=== PATIENT | female | born 1935 | race Caucasian/White ===

== ENCOUNTER 2016-08-27 10:44 | Emergency (ER) | payer OTHER ==
[2016-08-27 11:36] LABS: MANUAL DIFF NEEDED? NO
--- NOTE | 2016-08-27 11:38 | ED EKG INTERP ---
EKG Interpretation - EKG Time of EKG reading by physician:: 10:58 EKG Read and Signed by:: Ke Hudson EKG Interpretation (*Must complete 3 of following elements*): Abnormal Rate: 87 Rhythm: NSR [place]: left QRS: other (low voltage QRS) LA Interval: normal ST Wave: non-specific ST changes
[2016-08-27 11:43] LABS: BASO% 0.2 % (0.0-0.8); EOS# 1.02 X1000 (0.0-0.7); EOS% 12.3 % (0.0-10.0); HEMATOCRIT 38.7 % (37.0-47.0); HEMOGLOBIN 12.6 g/dL (12.0-16.0); LYMPH# 1.89 X1000 (1.2-3.4); LYMPH% 22.8 % (20.5-51.1); MCH 30.8 PG (27-31); MCHC 32.6 g/dL (33-37); MCV 94.6 FL (81-99); MONO% 10.9 % (1.7-9.3); MPV 9.8 FL (7.4-10.4); NEUT% 53.8 % (42.2-75.2); PLT 238 X1000 (130-400); RBC 4.09 XMIL (4.2-5.4)
--- NOTE | 2016-08-27 11:47 | Diag Imaging Result Document ---
PROCEDURE NAME: CHEST-2 VIEWS - 08/27/2016 CHEST X-RAY 2 VIEWS, 08/27/2016: COMPARISON: 07/07/2016. FINDINGS: There is some trace linear atelectasis at the lateral left lung base. Otherwise, no focal infiltrates, pneumothorax, or pleural effusion. Heart size and pulmonary vascularity is normal. IMPRESSION: No acute disease.
[2016-08-27 11:59] LABS: ALBUMIN 4.8 g/dL (3.5-5.0); CALCIUM 10.2 mg/dL (8.8-10.2); MAGNESIUM 1.9 mg/dL (1.5-2.7); POTASSIUM 2.9 mmol/L (3.5-5.1); TOTAL BILIRUBIN 0.87 mg/dL (0.20-1.00)
[2016-08-27 12:11] LABS: INR 1.01; PROTIME 10.7 Seconds (9.2-11.7); PTT 24.2 Seconds (22.0-36.0)
--- NOTE | 2016-08-27 12:35 | EKG Report ---
Test Performed on : 08/27/2016 10:58:19 AM Test Reason : Chest Pain Blood Pressure : / mmHG Vent. Rate : 087 BPM Atrial Rate : 087 BPM P-R Int : 178 ms QRS Dur : 092 ms QT Int : 378 ms P-R-T Axes : 045 -64 089 degrees QTc Int : 454 ms Normal sinus rhythm. with sinus arrhythmia. Left axis deviation Low voltage QRS Inferior infarct , age undetermined Cannot rule out Anterior infarct , age undetermined Abnormal ECG No previous ECGs available Unconfirmed Result
[2016-08-27] MEDS ORDERED: KLOR-CON PO ONE (13:44)
--- NOTE | 2016-08-27 13:46 | PROVIDER DOCUMENTATION ---
HPI-Respiratory General - General Chief Complaint: Shortness of Breath Stated Complaint: SENT BY MD FOR POSS INFECTION Time Seen by Provider: 08/27/16 13:42 Source: patient Allergies/Adverse Reactions: Patient Allergies Allergy/AdvReac Type Severity Reaction Status Date / Time codeine Allergy SWELLING Verified 06/20/16 17:11 meclizine HCl * Allergy RASH Verified 06/20/16 17:11 [From Antivert] morphine Allergy SWELLING Verified 06/20/16 17:11 Penicillins Allergy RASH Verified 06/20/16 17:11 Sulfa (Sulfonamide Allergy SWELLING Verified 06/20/16 17:11 Antibiotics) tetracycline [Tetracycline] Allergy SWELLING Verified 06/20/16 17:11 Home Medications: Budesonide/Formoterol Fumarate [Symbicort 160-4.5 Mcg Inhaler] 2 sprays INH BID 08/26/13 Hydrocodone Bit/Acetaminophen [Hydrocodon-Acetaminoph 7.5-325] 1 each PO TID 12/04 Rosuvastatin Calcium [Crestor] 40 mg PO HS 08/26/13 Venlafaxine HCl [Venlafaxine HCl ER] 150 mg PO DAILY 08/26/13 Docusate Sodium [Colace] 50 mg PO HS 08/24/14 Fluticasone Propionate 2 spray NS DAILY 08/24/14 Levothyroxine [Synthroid] 75 microgm PO DAILY 08/24/14 - History of Present Illness-Resp Nature of Presenting Problem: patient is a 81 y/o f that presents to the Er with shortness of breath and cough (yellow sputum) x 3 days. history of MRSA pneumonia with lengthy admission in May through Jun 2016. patient has restrictive airway dz and esophageal spams. denies fever/chills, sore throat, or chest pain Severity in ED: reports: mild, moderate Onset/Duration: reports: gradual, 3 days ago Timing: reports: still present, constant Context: reports: recent URI Cough Quality/Degree: reports: moderate, productive cough, sputum (yellow) Episode Frequency: occasional episodes Current Respiratory Medication Therapy: Initiated see nurses note Modifying Factors: worse with: coughing Associated Symptoms: reports: cough, shortness of breath, short of breath. denies: flu-like symptoms, hurts to breathe, nasal congestion, nasal drainage Similar Symptoms Previously?: Yes Recently seen or treated by another doctor?: Yes Review of Systems - Adult - REVIEW OF SYSTEMS - ADULT Constitutional: denies: chills, fever Eyes: reports: no symptoms reported Ears, Nose, Mouth & Throat: reports: no symptoms reported Cardiovascular: denies: chest pain, palpitations, syncope Respiratory: reports: cough, excessive sputum production, shortness of breath. denies: hemoptysis, wheezing Gastrointestinal: denies: abdominal pain, diarrhea, nausea, vomiting Genitourinary: reports: no symptoms reported Musculoskeletal: denies: back pain, joint pain, neck pain Integumentary: reports: no symptoms reported Neurological: reports: no symptoms reported Psychiatric: reports: no symptoms reported Endocrine: reports: no symptoms reported Hematologic/Lymphatic: reports: no symptoms reported Allergic/Immunologic: reports: no symptoms reported All Other Systems: Reviewed and Negative Past History - Adult - PAST MEDICAL HISTORY-ADULT Review of Records: reports: Old Records Reviewed, Nursing Assessment Review, Medications Reviewed Cardiovascular: reports: A-Fib, arrhythmia, CHF, HTN, hyperlipidemia Respiratory: reports: other (restrictive airway dz) Genitourinary: reports: kidney disease (CRI) Musculoskeletal: reports: arthritis, intervertebral disc disease Neurological: reports: other (cervical dystonia) Endocrine/Immune: reports: anemia, thyroid disorder - PRIOR SURGERIES/PROCEDURES Surgical/Procedure History: reports: appendectomy, EGD, colonoscopy, cholecystectomy, hernia repair, back/neck, other (rectocele repair) - IMMUNIZATION STATUS Childhood Immunizations: UTD Flu Vaccine: See Nurse Assessment - FAMILY HISTORY Family History: reviewed, not pertinent - SOCIAL HISTORY Living Situation: family Physical Exam-General - PHYSICAL EXAM-ADULT Initial Vital Signs Reviewed: Yes - CONSTITUTIONAL General Appearance: alert, no apparent distress - EYES Eyes: PERRL/EOMI, pink conjunctivae - HEAD, EARS, NOSE, MOUTH & THROAT HENMT: normocephalic/atraumatic, moist mucous membranes, normal ENT inspection - NECK Neck: supple, other (unable to move neck to left lateral due to cervical dystonia). negative: lymphadenopathy - RESPIRATORY Respiratory: lungs clear, normal breath sounds, no respiratory distress, no accessory muscle use - CARDIOVASCULAR Cardiovascular: no gallop, other (irregular regular) - GASTROINTESTINAL (ABDOMEN) Abdominal Exam: normal bowel sounds, non tender, soft, no organomegaly, no pulsatile mass, hernia (reduceable) - MUSCULOSKELETAL Back Exam: normal inspection, no CVA tenderness Extremity: normal range of motion, no pedal edema, no calf tenderness, normal capillary refill, pelvis stable - SKIN Integumentary: normal color, normal turgor, warm/dry - NEUROLOGIC Neurologic: grossly normal, no motor/sensory deficits - PSYCHIATRIC Psych/Mental Status: normal mood/affect, normal thought content, normal thought process, oriented x 3 Progress - PLAN OF CARE/RESULTS Progress/Plan/Lab Results: plan of care-labs, meds, xray, sputum culture Vital Signs Temp Pulse Resp BP Pulse Ox 08/27/16 13:51 63 15 160/79 95 08/27/16 10:51 97.4 F L 85 18 152/86 100 codeine Allergy (Verified 06/20/16 17:11) SWELLING meclizine HCl * [From Antivert] Allergy (Verified 06/20/16 17:11) RASH morphine Allergy (Verified 06/20/16 17:11) SWELLING Penicillins Allergy (Verified 06/20/16 17:11) RASH Sulfa (Sulfonamide Antibiotics) Allergy (Verified 06/20/16 17:11) SWELLING tetracycline [Tetracycline] Allergy (Verified 06/20/16 17:11) SWELLING Budesonide/Formoterol Fumarate [Symbicort 160-4.5 Mcg Inhaler] 2 sprays INH BID 08/26/13 Hydrocodone Bit/Acetaminophen [Hydrocodon-Acetaminoph 7.5-325] 1 each PO TID 12/04 Rosuvastatin Calcium [Crestor] 40 mg PO HS 08/26/13 Venlafaxine HCl [Venlafaxine HCl ER] 150 mg PO DAILY 08/26/13 Albuterol 2.5MG/Ipratrop 0.5MG [Duoneb (A & A)] 3 ml INH RTQ4H PRN #0 neb Aspirin 81 mg PO DAILY #0 chewtab 04/08/14 Clonazepam [Klonopin] 1 mg PO TID #0 tablet 04/08/14 Losartan [Cozaar] 50 mg PO DAILY #0 tablet 04/08/14 Docusate Sodium [Colace] 50 mg PO HS 08/24/14 Fluticasone Propionate 2 spray NS DAILY 08/24/14 Levothyroxine [Synthroid] 75 microgm PO DAILY 08/24/14 Montelukast [Singulair] 10 mg PO DAILY #30 tablet 08/24/14 Hydrocodone/Chlorphen Polis [Tussionex Liquid] 5 ml PO Q12H PRN PRN #90 udc 11/04 Amitriptyline [Elavil] 25 mg PO HS #30 tablet 07/14/16 Diltiazem [Cardizem] 30 mg PO Q6HR #120 tablet 07/14/16 Diphenhyramine/Al&mg Oh/Lido [Mbx Solution] 15 ml MT 4XDAY PRN PRN #1 bottle Furosemide [Lasix] 40 mg PO DAILY PRN #30 tablet 07/14/16 Iron Carbonyl/Ascorbic Acid [Icar-C] 1 each PO BID #60 tablet 07/14/16 Pantoprazole [Protonix] 40 mg PO DAILY@0700 #30 tablet 07/14/16 Sucralfate [Carafate Liquid] 1 gm PO AC + [place] #1 [facility] Laboratory 08/27/16 08/27/16 08/27/16 11:02 11:02 11:02 WBC RBC Hgb Hct MCV MCH MCHC RDW Std Deviation Plt Count MPV Immature Gran % (Auto) Neut % (Auto) Lymph % (Auto) Colbert % (Auto) Eos % (Auto) Baso % (Auto) Immature Gran # (Auto) Neut # (Auto) Lymph # (Auto) Colbert # (Auto) Eos # (Auto) Baso # (Auto) PT 10.7 INR 1.01 PTT (Actin FS) 24.2 Sodium Potassium Chloride Carbon Dioxide Anion Gap BUN Creatinine Estimated GFR/1.73 m2 BUN/Creatinine Ratio Glucose Calculated Osmolality Calcium Magnesium Total Bilirubin AST ALT Alkaline Phosphatase Creatine Kinase Troponin T < 0.010 [id number] Pept 324 Total Protein Albumin Globulin Albumin/Globulin Ratio 08/27/16 08/27/16 11:02 11:02 WBC 8.29 RBC 4.09 L Hgb 12.6 Hct 38.7 MCV 94.6 MCH 30.8 MCHC 32.6 L RDW Std Deviation 14.5 Plt Count 238 MPV 9.8 Immature Gran % (Auto) 0.0 Neut % (Auto) 53.8 Lymph % (Auto) 22.8 Colbert % (Auto) 10.9 H Eos % (Auto) 12.3 H Baso % (Auto) 0.2 Immature Gran # (Auto) 0.00 Neut # (Auto) 4.46 Lymph # (Auto) 1.89 Colbert # (Auto) 0.90 H Eos # (Auto) 1.02 H Baso # (Auto) 0.02 PT INR PTT (Actin FS) Sodium 141 Potassium 2.9 L Chloride 94 L Carbon Dioxide 29 Anion Gap 18 BUN 14 Creatinine 1.7 H Estimated GFR/1.73 m2 29 BUN/Creatinine Ratio 8 Glucose 105 H Calculated Osmolality 282 Calcium 10.2 Magnesium 1.9 Total Bilirubin 0.87 AST 21 ALT 15 Alkaline Phosphatase 69 Creatine Kinase 80 Troponin T [id number] Pept Total Protein 7.0 Albumin 4.8 Globulin 2.2 Albumin/Globulin Ratio 2.2 Orders Category Date Time Status CHEST-2 VIEWS [RAD] Stat Exams 08/27/16 10:56 Draft CBC WITH ELECTRONIC DIFF [HEME] Stat Lab 08/27/16 11:02 Completed CK PROFILE [SP CHEM] Stat Lab 08/27/16 11:02 Completed COMPREHENSIVE METABOLIC PANEL [CHEM] Stat Lab 08/27/16 11:02 Completed MAGNESIUM [CHEM] Stat Lab 08/27/16 11:02 Completed PRO B-NATRIURETIC PEPTIDE Stat Lab 08/27/16 11:02 Completed PROTIME WITH INR [COAG] Stat Lab 08/27/16 11:02 Completed PTT [COAG] Stat Lab 08/27/16 11:02 Completed TROPONIN T Stat Lab 08/27/16 11:02 Completed Potassium Chloride E.r. [Klor-Con] Med 08/27/16 13:44 Discontinued 40 meq PO NOW ONE EKG [EKG] Stat Ther 08/27/16 10:56 Draft pt will be d/c home f/u with pcp, rx given, pt was clinically stable and understood instructions - XRAY 1 XRAY Study: Chest Impression: Abnormal XRAY Interpretation: no acute dz, linear atelectasis Departure - Departure Time of Disposition Order: 14:04 DIAGNOSIS: Shortness of breath, A-fib, Chronic cough, Hypokalemia Disposition: HOME 01 Certified Medical Emergency: Emergent Condition: Stable Additional Instructions: ED Follow Up Instructions: You have been treated by a care provider in the Emergency Department. These instructions are being provided to you so you can have an understanding of how to care for yourself upon discharge. Upon discharge from the Emergency Department, you are responsible for making arrangements for follow-up care by a physician of your choice. Take all prescribed medications as directed. Return to the Emergency Department immediately for any new or worsening symptoms. You may call the Physician Referral phone number at [phone] to obtain a list of Physicians who are taking new patients. Referrals: Emma Trevino MD [Primary Care Provider] - (call today) Instructions: Cough, Adult, [id number], Hypokalemia Attestation - Scribe Verification/Attestation Scribe:: Prashanth Riggs Acting as Scribe for:: Ke Hudson Scribe documention review:: This chart was documented by a scribe and accurately reflects the service the provider performed and the decisions made by the provider. Physician Attestation - Physician Attestation I, the provider, attest to the following statement:: Ke Hudson Physician documentation Attestation:: This documentation recorded by the scribe accurately reflects the service I personally performed and the decisions made by me.
[2016-08-27 14:35] VITALS: BP 152/84
== END 2016-08-27 14:46 | disposition home or self-care (01) ==
LOC: ED 10:44
DX: I48.91 Unspecified atrial fibrillation (principal); E87.6 Hypokalemia; R06.02 Shortness of breath; R05 Cough; I50.9 Heart failure, unspecified; I10 Essential (primary) hypertension; E78.5 Hyperlipidemia, unspecified; Z79.899 Other long term (current) drug therapy; I12.9 Hypertensive chronic kidney disease with stage 1 through stage 4 chronic kidney disease, or unspecified chronic kidney disease; N18.9 Chronic kidney disease, unspecified; R09.3 Abnormal sputum; M19.90 Unspecified osteoarthritis, unspecified site; M48.9 Spondylopathy, unspecified; G24.9 Dystonia, unspecified; D64.9 Anemia, unspecified; E07.9 Disorder of thyroid, unspecified; Z79.51 Long term (current) use of inhaled steroids; Z79.82 Long term (current) use of aspirin; J98.9 Respiratory disorder, unspecified
CPT/HCPCS: 71020; 80053; 82550; 83735; 83880; 84484; 85025; 85610; 85730; 93005; 99282

== ENCOUNTER 2016-12-19 18:27 | Inpatient (IN) ==
[2016-12-19] MEDS ORDERED: ALBUTEROL NEB ONE (18:33)
[2016-12-19] MEDS ORDERED: DUONEB (A & A) INH ONE (18:40)
[2016-12-19] MEDS ORDERED: NITROGLYCERIN SL ONE (18:40)
[2016-12-19] MEDS ORDERED: NITROGLYCERIN TOP ONE (18:40)
[2016-12-19] MEDS ORDERED: ALBUTEROL NEB INH ONE (18:40)
[2016-12-19] MEDS ORDERED: SOLU-MEDROL IV ONE (18:42)
[2016-12-19 18:52] LABS: MANUAL DIFF NEEDED? NO
[2016-12-19 18:56] LABS: ALLEN TEST YES; BE 2.6 mmoll (-3.0-3.0); BLOOD TYPE ARTERIAL; DRAW SITE R RADIAL; METHB 1.3 % (0.0-1.5); O2(CT) 19.3 mL/dL (15.0-23.0); PO2(98.6) 181 mmHg (60-100); SAMPLE BLOOD; SAO2 100.6 % (95.0-100.0); THB 13.9 g/dL (11.5-17.4); pH(98.6) 7.26 (7.35-7.45)
[2016-12-19 18:57] LABS: MODALITY BI PAP; PCO2(98.6) 71 mmHg (35-45)
[2016-12-19 18:59] LABS: BASO% 0.5 % (0.0-0.8); EOS# 1.39 X1000 (0.0-0.7); EOS% 10.8 % (0.0-10.0); HEMATOCRIT 41.8 % (37.0-47.0); HEMOGLOBIN 13.7 g/dL (12.0-16.0); IMM GRAN# 0.05 X1000 (0.0-0.04); IMM GRAN% 0.4 % (0.0-0.5); LYMPH# 4.82 X1000 (1.2-3.4); LYMPH% 37.5 % (20.5-51.1); MCH 31.7 PG (27-31); MCHC 32.8 g/dL (33-37); MCV 96.8 FL (81-99); MONO# 1.11 X1000 (0.11-0.59); MONO% 8.6 % (1.7-9.3); MPV 9.9 FL (7.4-10.4); NEUT% 42.2 % (42.2-75.2); PLT 298 X1000 (130-400); RBC 4.32 XMIL (4.2-5.4)
[2016-12-19 19:08] LABS: INR 1.02; PROTIME 10.7 Seconds (9.2-11.7)
[2016-12-19 19:17] LABS: ALBUMIN 4.1 g/dL (3.5-5.0); CALCIUM 9.3 mg/dL (8.8-10.2); MAGNESIUM 2.7 mg/dL (1.5-2.7); POTASSIUM 3.9 mmol/L (3.5-5.1); TOTAL BILIRUBIN 0.7 mg/dL (0.20-1.00); TOTAL PROTEIN 7.4 g/dL (6.3-8.3)
[2016-12-19 19:35] LABS: CK INDEX 3.1 (0.0-2.5); CK-MB 8.35 ng/mL (0.0-5.0)
[2016-12-19 19:46] LABS: ALLEN TEST YES; BE 5.1 mmoll (-3.0-3.0); BLOOD TYPE ARTERIAL; DRAW SITE R RADIAL; METHB 2.1 % (0.0-1.5); O2(CT) 17.8 mL/dL (15.0-23.0); PCO2(98.6) 50 mmHg (35-45); PO2(98.6) 258 mmHg (60-100); SAMPLE BLOOD; SAO2 99.3 % (95.0-100.0); THB 12.8 g/dL (11.5-17.4)
[2016-12-19 19:48] LABS: MODALITY BI PAP
--- NOTE | 2016-12-19 19:54 | Diag Imaging Result Document ---
PROCEDURE NAME: CHEST-PORTABLE - 12/19/2016 PORTABLE CHEST: COMPARISON: Compared to 12/01/2016. The lungs are well expanded. The heart remains mildly prominent. The vessels are not distended. No consolidation. No pleural effusions identified. IMPRESSION: Stable chest.
--- NOTE | 2016-12-19 20:04 | PROVIDER DOCUMENTATION ---
This chart was entered by Joe Elias Scribe, acting as scribe for Neftali Smith MD. HPI-Respiratory General - General Stated Complaint: fall, left hip pain Time Seen by Provider: 12/19/16 18:27 Source: EMS Allergies/Adverse Reactions: Patient Allergies Allergy/AdvReac Type Severity Reaction Status Date / Time codeine Allergy SWELLING Verified 12/19/16 18:45 meclizine HCl * Allergy RASH Verified 12/19/16 18:45 [From Antivert] morphine Allergy SWELLING Verified 12/19/16 18:45 Penicillins Allergy RASH Verified 12/19/16 18:45 Sulfa (Sulfonamide Allergy SWELLING Verified 12/19/16 18:45 Antibiotics) tetracycline [Tetracycline] Allergy SWELLING Verified 12/19/16 18:45 Home Medications: Home Medication List Medication Instructions Recorded Confirmed Last Taken Type Budesonide/Formoterol Fumarate 2 sprays INH BID 08/26/13 12/19/16 12/01/16 History [Symbicort 160-4.5 Mcg Inhaler] Hydrocodone Bit/Acetaminophen 1 each PO TID 08/26/13 12/19/16 12/01/16 History [Hydrocodon-Acetaminoph 7.5-325] Rosuvastatin Calcium [Crestor] 40 mg PO HS 08/26/13 12/19/16 12/01/16 History Venlafaxine HCl [Venlafaxine HCl 150 mg PO DAILY 08/26/13 12/19/16 12/01/16 History ER] Albuterol 2.5MG/Ipratrop 0.5MG 3 ml INH RTQ4H PRN #0 neb 04/08/14 12/19/1612/01 Rx [Duoneb (A & A)] Aspirin 81 mg PO DAILY #0 chewtab 04/08/14 12/19/16 12/01/16 Rx Clonazepam [Klonopin] 1 mg PO TID #0 tablet 04/08/14 12/19/16 12/01/16 Rx Losartan [Cozaar] 50 mg PO DAILY #0 tablet 04/08/14 12/19/16 12/01/16 Rx Docusate Sodium [Colace] 50 mg PO HS 08/24/14 12/19/16 12/01/16 History Levothyroxine [Synthroid] 75 microgm PO DAILY 08/24/14 12/19/16 12/01/16 History Iron Carbonyl/Ascorbic Acid 1 each PO BID #60 tablet 07/14/16 12/19/16 12/01/16 Rx [Icar-C] Pantoprazole [Protonix] 40 mg PO DAILY@0700 #30 tablet 07/14/16 12/19/16 Rx Sucralfate [Carafate Liquid] 1 gm PO AC + HS #1 udc 07/14/16 12/19/16 12/01/16 Rx Hydrochlorothiazide 12.5 mg PO DIRECTED 12/19/16 12/19/16 Unknown History [Hydrochlorothiazide] Potassium Chloride 10 meq PO TID 12/19/16 12/19/16 Unknown History - History of Present Illness-Resp Nature of Presenting Problem: Pt is a 41 yof who presents to ER via EMS from home with CC of shortness of breath. EMS reports that pt was 97% O2 saturation on non-rebreather (was applied prior to EMS arrival). Severity in ED: reports: severe Onset/Duration: reports: unsure Timing: reports: still present Associated Symptoms: reports: shortness of breath, short of breath, wheezing. denies: chest pain/soreness, cough, dizziness, earache, facial pain, fever/ chills, flu-like symptoms, headache, heart racing, hurts to breathe, hyperventilating, lightheadedness, muscle/bodyaches, nasal congestion, nasal drainage, sinus pain, sore throat, sweaty Review of Systems - Adult - REVIEW OF SYSTEMS - ADULT ROS:: limited per condition Constitutional: denies: chills, fever, fatique, night sweats, weight gain, weight loss Eyes: reports: no symptoms reported Ears, Nose, Mouth & Throat: reports: no symptoms reported Cardiovascular: reports: no symptoms reported Respiratory: reports: shortness of breath, wheezing. denies: chronic cough, cough, dyspnea on exertion, excessive sputum production, hemoptysis, pleurisy Gastrointestinal: reports: no symptoms reported Genitourinary: reports: no symptoms reported Musculoskeletal: reports: no symptoms reported Integumentary: reports: no symptoms reported Neurological: reports: no symptoms reported Psychiatric: reports: no symptoms reported Endocrine: reports: no symptoms reported Hematologic/Lymphatic: reports: no symptoms reported Allergic/Immunologic: reports: no symptoms reported All Other Systems: Reviewed and Negative Past History - Adult - PAST MEDICAL HISTORY-ADULT Review of Records: reports: Nursing Assessment Review, Medications Reviewed Cardiovascular: reports: A-Fib, arrhythmia, CHF, HTN, hyperlipidemia Respiratory: reports: other (restrictive airway dz) Genitourinary: reports: kidney disease (CRI) Musculoskeletal: reports: arthritis, intervertebral disc disease Neurological: reports: other (cervical dystonia) Endocrine/Immune: reports: anemia, thyroid disorder - PRIOR SURGERIES/PROCEDURES Surgical/Procedure History: reports: appendectomy, EGD, colonoscopy, cholecystectomy, hernia repair, back/neck, other (rectocele repair) - IMMUNIZATION STATUS Childhood Immunizations: UTD, See Nurse Assessment Flu Vaccine: See Nurse Assessment - FAMILY HISTORY Family History: reviewed, not pertinent Physical Exam-General - PHYSICAL EXAM-ADULT Initial Vital Signs Reviewed: Yes - CONSTITUTIONAL General Appearance: alert, severe distress. negative: appears well - EYES Eyes: PERRL/EOMI, pink conjunctivae, fundi clear, no AV nicking - HEAD, EARS, NOSE, MOUTH & THROAT HENMT: normocephalic/atraumatic, moist mucous membranes, normal ENT inspection, TMs normal, pharynx normal. negative: pharyngeal erythema, tonsillar exudate, TM abnormal - NECK Neck: non-tender, full range of motion, supple, normal inspection. negative: C- spine tenderness, limited range of motion, lymphadenopathy - RESPIRATORY Respiratory: chest non-tender, no pleuratic chest pain, respiratory distress, wheezing (non-wet wheezing). negative: lungs clear, normal breath sounds, no respiratory distress - CARDIOVASCULAR Cardiovascular: normal peripheral pulses, tachycardia. negative: regular rate, rhythm, bradycardia, irregularly irregular - MUSCULOSKELETAL Back Exam: normal inspection, no CVA tenderness, no vertebral tenderness. negative: CVA tenderness, decreased range of motion, ecchymosis, muscle spasm, swelling, vertebral tenderness Extremity: normal range of motion, non-tender, normal gait, normal inspection, no pedal edema, no calf tenderness, normal capillary refill. negative: swelling , tenderness - PSYCHIATRIC Psych/Mental Status: normal thought content, normal thought process, oriented x 3, anxious, disheveled. negative: normal mood/affect Progress - PLAN OF CARE/RESULTS Progress/Plan/Lab Results: Vital Signs - 8 hr 12/19/16 18:27 12/19/16 18:48 Pulse Rate 109 H 122 H Respiratory Rate 29 H 32 H Blood Pressure 169/141 O2 Sat by Pulse Oximetry 98 99 Laboratory Results - last 24 hr 12/19/16 12/19/16 12/19/16 18:33 18:33 18:33 WBC 12.85 H RBC 4.32 Hgb 13.7 Hct 41.8 MCV 96.8 MCH 31.7 H MCHC 32.8 L RDW Std Deviation 14.9 H Plt Count 298 MPV 9.9 Immature Gran % (Auto) 0.4 Neut % (Auto) 42.2 Lymph % (Auto) 37.5 [place] % (Auto) 8.6 Eos % (Auto) 10.8 H Baso % (Auto) 0.5 Immature Gran # (Auto) 0.05 H Neut # (Auto) 5.42 Lymph # (Auto) 4.82 H [place] # (Auto) 1.11 H Eos # (Auto) 1.39 H Baso # (Auto) 0.06 PT INR PTT (Actin FS) D-Dimer 0.67 H Specimen Type Sample Site pH pCO2 pO2 HCO3 Base Excess Oxyhemoglobin ABG O2 Sat (Calculated) ABG O2 Saturation ABG Carboxyhemoglobin ABG Methemoglobin Oidn Test A-a O2 Difference Total Hemoglobin Lactate Blood Gas Modality Vent Mode FiO2 % Inspiratory BiPAP Expiratory BiPAP Sodium 144 Potassium 3.9 Chloride 99 Carbon Dioxide 27 Anion Gap 18 BUN 16 Creatinine 1.7 H Estimated GFR/1.73 m2 29 BUN/Creatinine Ratio 9 Glucose 217 H Calculated Osmolality 295 Calcium 9.3 Magnesium 2.7 Total Bilirubin 0.70 AST 32 H ALT 16 Alkaline Phosphatase 73 Creatine Kinase 267 H Creatine Kinase Index 3.1 H CK-MB (CK-2) 8.35 H Troponin T [id number]-Y-Avsncwasylu Pept Total Protein 7.4 Albumin 4.1 Globulin 3.3 Albumin/Globulin Ratio 1.2 12/19/16 12/19/16 12/19/16 18:33 18:33 18:33 WBC RBC Hgb Hct MCV MCH MCHC RDW Std Deviation Plt Count MPV Immature Gran % (Auto) Neut % (Auto) Lymph % (Auto) [place] % (Auto) Eos % (Auto) Baso % (Auto) Immature Gran # (Auto) Neut # (Auto) Lymph # (Auto) [place] # (Auto) Eos # (Auto) Baso # (Auto) PT 10.7 INR 1.02 PTT (Actin FS) 24.0 D-Dimer Specimen Type Sample Site pH pCO2 pO2 HCO3 Base Excess Oxyhemoglobin ABG O2 Sat (Calculated) ABG O2 Saturation ABG Carboxyhemoglobin ABG Methemoglobin Odin Test A-a O2 Difference Total Hemoglobin Lactate Blood Gas Modality Vent Mode FiO2 % Inspiratory BiPAP Expiratory BiPAP Sodium Potassium Chloride Carbon Dioxide Anion Gap BUN Creatinine Estimated GFR/1.73 m2 BUN/Creatinine Ratio Glucose Calculated Osmolality Calcium Magnesium Total Bilirubin AST ALT Alkaline Phosphatase Creatine Kinase Creatine Kinase Index CK-MB (CK-2) Troponin T 0.012 [id number]-Tpfxwditnhq Pept 1558 H Total Protein Albumin Globulin Albumin/Globulin Ratio 12/19/16 12/19/16 18:47 19:40 WBC RBC Hgb Hct MCV MCH MCHC RDW Std Deviation Plt Count MPV Immature Gran % (Auto) Neut % (Auto) Lymph % (Auto) [place] % (Auto) Eos % (Auto) Baso % (Auto) Immature Gran # (Auto) Neut # (Auto) Lymph # (Auto) [place] # (Auto) Eos # (Auto) Baso # (Auto) PT INR PTT (Actin FS) D-Dimer Specimen Type ARTERIAL ARTERIAL Sample Site R RADIAL R RADIAL pH 7.26 L 7.40 pCO2 71 H* 50 H pO2 181 H 258 H HCO3 26.9 H 28.9 H Base Excess 2.6 5.1 H Oxyhemoglobin 97.0 95.7 ABG O2 Sat (Calculated) 19.3 17.8 ABG O2 Saturation 100.6 H 99.3 ABG Carboxyhemoglobin 2.20 1.50 ABG Methemoglobin 1.3 2.1 H Odin Test YES YES A-a O2 Difference 229.0 179.0 Total Hemoglobin 13.9 12.8 Lactate 2.80 H 1.60 Blood Gas Modality BI PAP BI PAP Vent Mode BIPAP FiO2 % 70.0 70.0 Inspiratory BiPAP 20.0 20.0 Expiratory BiPAP 5.0 5.0 Sodium Potassium Chloride Carbon Dioxide Anion Gap BUN Creatinine Estimated GFR/1.73 m2 BUN/Creatinine Ratio Glucose Calculated Osmolality Calcium Magnesium Total Bilirubin AST ALT Alkaline Phosphatase Creatine Kinase Creatine Kinase Index CK-MB (CK-2) Troponin T Jiw-X-Oqatogxqyus Pept Total Protein Albumin Globulin Albumin/Globulin Ratio Orders Category Date Time Status Cardiac Monitoring DIRECTED Care 12/19/16 18:39 Active Oxygen Therapy- ED Nursing DIRECTED Care 12/19/16 18:39 Active Saline Loc NOW Care 12/19/16 18:39 Active cxr [CHEST-PORTABLE] [RAD] Stat Exams 12/19/16 18:31 Draft ABG [RESP] Routine Lab 12/19/16 18:47 Completed ABG [RESP] Routine Lab 12/19/16 18:52 Ordered ABG [RESP] Routine Lab 12/19/16 19:40 Completed BLOOD CULTURE [BLDCUL] Stat Lab 12/19/16 19:51 Received CBC WITH ELECTRONIC DIFF [HEME] Stat Lab 12/19/16 18:33 Completed CK PROFILE [SP CHEM] Stat Lab 12/19/16 18:33 Completed COMPREHENSIVE METABOLIC PANEL [CHEM] Stat Lab 12/19/16 18:33 Completed D-DIMER [CHEM] Stat Lab 12/19/16 18:33 Completed LACTATE, PLASMA [CHEM] Stat Lab 12/19/16 18:43 Uncollected MAGNESIUM [CHEM] Stat Lab 12/19/16 18:33 Completed PRO B-NATRIURETIC PEPTIDE Stat Lab 12/19/16 18:33 Completed PROTIME WITH INR [COAG] Stat Lab 12/19/16 18:33 Completed PTT [COAG] Stat Lab 12/19/16 18:33 Completed TROPONIN T Stat Lab 12/19/16 18:33 Completed Albuterol 2.5MG/Ipratrop 0.5MG [Duoneb (A & A)] Med 12/19/16 18:40 Discontinued 3 ml INH NOW ONE Albuterol [Albuterol Neb] Med 12/19/16 18:40 Discontinued 5 mg INH NOW ONE Methylprednisolone Sod Succ [Solu-Medrol] Med 12/19/16 18:42 Discontinued 125 mg IV NOW ONE Nitroglycerin Med 12/19/16 18:40 Discontinued 1 inch TOP NOW ONE Nitroglycerin Sl [Nitroglycerin] Med 12/19/16 18:40 Discontinued 0.4 mg SL NOW ONE Aerosol Treatments Routine Oth 12/19/16 18:40 Completed Aerosol Treatments Stat Oth 12/19/16 18:40 Completed EKG [EKG] Stat Ther 12/19/16 18:39 Ordered Result Diagrams: 12/19/16 18:33 12/19/16 18:33 - REASSESSMENT Reassessment #1 Time Reassessed: 18:50 Status: other (Son at bedside report that pt has had a chronic cough that has become worse in the past week and has had to use her boyfriend's O2 at home.) Reassessment #2 Time Reassessed: 20:03 (pt breathing much easier) Status: improving - EKG 1 Time of EKG reading by physician:: 18:35 EKG Read and Signed by:: Neftali Smith EKG Interpretation (*Must complete 3 of following elements*): Abnormal (L axis deviation) Rate: 88 Rhythm: Bygeminy - XRAY 1 XRAY: Bilateral XRAY Study: Chest Impression: See EMR Report XRAY Interpretation: No obvious pulmonary edema Departure - Departure Time of Disposition Decision: 20:04 DIAGNOSIS: COPD exacerbation Disposition: ADMITTED INPATIENT 09 Certified Medical Emergency: Emergent Condition: Fair - Critical Care Note This patient required my direct personal management.: Yes Total Time (mins): 60 Critical Care Statement: This patient required my direct personal management to treat or rule out processes, the absence of which, could potentiallly result in sudden, clinically significant life or limb threatening deterioration. This chart was documented by the indicated scribe, (Joe Elias, Casandra) and accurately reflects the services I performed and decisions made by me, Neftali Gómez MD, as attested by the provider's signature.
--- NOTE | 2016-12-19 21:33 | HISTORY AND PHYSICAL ---
CHIEF COMPLAINT: Cough and shortness of breath. PRIMARY CARE PHYSICIAN: Dr. Emma Trevino. HISTORY OF PRESENTING ILLNESS: This 81-year-old female with a history of COPD, CHF, hypertension and hypothyroidism had presented to the emergency department with several weeks history of having progressive worsening shortness of breath. The patient states that she was having difficulty breathing. She was also having coughing spells which would not stop and it seemed to be worsening over the past several days. She states that symptoms worsened such that she could not tolerate and subsequently she had come to the emergency department. In ER she was evaluated. She was found to be in respiratory distress. She was put on BiPAP and she had some improvement. Due to her presenting symptoms, patient will need hospitalization for further management. At the time of my examination she had denied any fever, chills, chest pain, hemoptysis, or any weight changes but complained of having a headache and shortness of breath. PAST MEDICAL HISTORY: Includes COPD, hypertension, CHF, hyperlipidemia, esophageal spasm/stricture, cervical dystonia, chronic kidney disease, anemia, hypothyroidism. PAST SURGICAL HISTORY: Back surgery, neck surgery, hernia repair, hysterectomy. ALLERGIES: To codeine, morphine, penicillin, sulfa, tetracycline. CURRENT MEDICATIONS: As listed in the MAR. SOCIAL HISTORY: She denies any history of smoking, alcohol or illicit drug use. FAMILY HISTORY: No history of coronary disease. REVIEW OF SYSTEMS: Twelve-point review of systems is as in HPI. Other systems negative. PHYSICAL EXAMINATION: GENERAL: The patient is in mild to moderate respiratory distress and is on BiPAP. VITAL SIGNS: Pulse 109, respiration 29, blood pressure 169/141. HEENT: Atraumatic, normocephalic. Extraocular movements intact. PERRLA. NECK: No masses. CHEST: Rhonchi. CARDIOVASCULAR: Tachycardic. ABDOMEN: Soft. Positive bowel sounds. EXTREMITIES: Trace edema. NEURO: She is awake, alert, oriented x2. : No bladder distention. SKIN: Warm and good turgor. LABORATORIES AND STUDIES: WBC 12.85, hemoglobin 13.7, hematocrit 41.8, platelets 298,000. ABGs were pH 7.26, pCO2 is 71. Sodium 144, potassium 3.9, chloride 99, CO2 is 27, BUN is 16, creatinine 1.7, glucose 217. ProBNP is 1558. ASSESSMENT: 81-year-old elderly female with a history of chronic obstructive pulmonary disease, hypertension, congestive heart failure and hyperlipidemia had presented to emergency department with several weeks history of worsening shortness of breath for the past several days. It worsened such that she could not tolerate. She was evaluated in the ER and put on BiPAP and she will need hospitalization further management. The patient and family had discussed that she did not want any long-term ventilator support but is agreeable to cardiopulmonary resuscitation. 1. Acute respiratory failure. 2. Chronic obstructive pulmonary disease exacerbation. 3. Congestive heart failure unspecified. 4. Hypertension. 5. Hyperlipidemia. PLAN: 1. Will admit patient to ICU. 2. Will continue with BiPAP. 3. Will start patient on Solu-Medrol and Levaquin. 4. Will consult Pulmonary. 5. Will continue gentle diuresis as needed. 6. We will monitor blood pressure. Resume antihypertensive agents. 7. We will restart her home medications. 8. Put patient on DVT prophylaxis with SCDs. 9. The patient is DNR level 2. 10. Will continue to follow and reassess. cc: Filiberto Overton MD
[2016-12-19] MEDS ORDERED: HYDROCHLOROTHIAZIDE PO SCH (21:39)
[2016-12-19] MEDS ORDERED: TYLENOL PO PRN (21:39)
[2016-12-19] MEDS: CARAFATE LIQUID PO SCH (22:10)
[2016-12-19] MEDS: COLACE PO SCH (22:11)
[2016-12-19] MEDS: CRESTOR PO SCH (22:12)
[2016-12-19] MEDS: ICAR-C PO SCH (22:13)
[2016-12-19] MEDS: LEVAQUIN 500 MG/D5W 500 MG/100 ML IVPB IV SCH (22:14)
[2016-12-19] MEDS ORDERED: KLONOPIN PO ONE ×2 (22:22→22:30)
[2016-12-19] MEDS: DUONEB (A & A) INH SCH (23:30)
[2016-12-20] MEDS ORDERED: SOLU-MEDROL IV SCH (02:00)
[2016-12-20] MEDS ORDERED: NS 1,000 ML IV SCH (03:20)
[2016-12-20] MEDS: DUONEB (A & A) INH SCH ×6 (03:24→22:35)
[2016-12-20 04:15] LABS: URINE CULTURE NEEDED? NO; URINE MICRO REVIEW NEEDED? NO; URINE SOURCE CATH
[2016-12-20 04:17] LABS: BILIRUBIN URINE NEGATIVE (NEGATIVE); BLOOD URINE NEGATIVE (NEGATIVE); COLOR YELLOW; GLUCOSE URINE NEGATIVE (NEGATIVE); LEUKOCYTES URINE NEGATIVE (NEGATIVE); NITRITE URINE NEGATIVE (NEGATIVE); PH URINE 5.5; PROTEIN URINE 30 mg/dL (NEGATIVE); SP GRAVITY URINE 1.019; TURBIDITY URINE CLEAR (CLEAR); UROBILINOGEN URINE NORMAL (NORMAL)
[2016-12-20 04:19] LABS: UR EPITHELIAL CELLS <10 /HPF (<10); URINE BACTERIA NEGATIVE /HPF; URINE RBC <10 /HPF (<10); URINE WBC <10 /HPF (<10)
[2016-12-20] MEDS: ROBITUSSIN PO PRN ×3 (04:47→18:42)
[2016-12-20] MEDS: PROTONIX PO SCH (06:00)
[2016-12-20] MEDS: CARAFATE LIQUID PO SCH ×4 (06:00→21:17)
[2016-12-20] MEDS: SYNTHROID PO SCH ×2 (06:01→09:54)
[2016-12-20 07:29] LABS: CALCIUM 9.8 mg/dL (8.8-10.2); POTASSIUM 3.5 mmol/L (3.5-5.1)
[2016-12-20] MEDS: LASIX IV SCH (08:49)
[2016-12-20] MEDS: KLONOPIN PO SCH ×3 (08:50→16:34)
[2016-12-20] MEDS ORDERED: ASPIRIN PO SCH (09:00)
[2016-12-20] MEDS: ICAR-C PO SCH ×2 (09:00→21:17)
[2016-12-20] MEDS ORDERED: COZAAR PO SCH (09:00)
[2016-12-20 09:02] LABS: EOS# 0.01 X1000 (0.0-0.7); EOS% 0.2 % (0.0-10.0); HEMATOCRIT 38.2 % (37.0-47.0); HEMOGLOBIN 12.5 g/dL (12.0-16.0); IMM GRAN# 0.02 X1000 (0.0-0.04); IMM GRAN% 0.3 % (0.0-0.5); LYMPH# 0.62 X1000 (1.2-3.4); LYMPH% 9.4 % (20.5-51.1); MANUAL DIFF NEEDED? YES; MCHC 32.7 g/dL (33-37); MCV 97.7 FL (81-99); MONO% 1.5 % (1.7-9.3); NEUT% 88.6 % (42.2-75.2); PLT 208 X1000 (130-400); RBC 3.91 XMIL (4.2-5.4)
[2016-12-20 09:38] LABS: BANDS 2 % (0-1); LYMPHS 4 % (21-51)
[2016-12-20] MEDS: SOLU-MEDROL IV SCH ×2 (09:54→17:07)
[2016-12-20] MEDS: SINGULAIR PO SCH (09:54)
[2016-12-20] MEDS: EFFEXOR XR PO SCH (09:54)
[2016-12-20] MEDS: ADVAIR 250/50 DISKUS INH SCH ×2 (11:04→19:22)
--- NOTE | 2016-12-20 11:05 | PROGRESS NOTE ---
DATE: 12/20/2016 SUBJECTIVE: Ms. Preciado got admitted last night because of persistent cough. This has been her main complaint for awhile now. She has even done multiple studies in the past, most of them not very conclusive, including an EGD, PFTs, and a swallow evaluation. She does have severe presbyesophagus with diffuse spasms. She also seems to have mild to moderate obstructive pattern on the PFTs that she did. It also seems to have some restrictive component as well. 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 OBJECTIVE: Vital Signs: Today, her blood pressure is 127/76, pulse of 87, respirations are 24, temperature is 98.2 degrees. General Examination: Ms. Preciado is an 81- year-old, female. She is in bed. She did not seem to be in any remarkable distress. HEENT: Mucosa is pink and moist. Anicteric and acyanotic. Neck: Supple. Chest: Good air entry bilaterally. There is a few diffuse end-expiratory wheezing with prolonged expiration phase of respiration. Cardiovascular: Regular rate and rhythm. Abdomen: Soft, nontender. Extremities: No pedal edema. DIGITAL PRINTER: Patient is alert, oriented x4. There is no focal neurological deficit. Laboratory Data: WBC is 6.63, hemoglobin is 11.5, platelet count is 208,000. Chemistry is reviewed. Creatinine is 1.7. Rest of chemistry is fine. ProBNP is 1558. A chest x-ray on presentation showed no acute disease. ASSESSMENT: 1. Chronic cough. The patient refers that she normally gets this cough paroxysmal, especially when the season changes, during spring when there are a lot of mendez blooming. She cannot stand strong perfumes. She cannot stand smoke. The patient has never smoked in her life. The pulmonary function tests that she did in 2013 have also been reviewed consistent with mixed disease. I think patient has a seasonal allergy as part of the cause of her chronic cough, asthma type. We will treat her as a form of asthma exacerbation with nebulization, steroids, and continue her clinical picture. The patient could also potentially have issues with losartan and other medications that potentially can cause chronic cough, like aspirin. I have therefore discontinued her losartan and aspirin. Lastly she has esophageal issues which predispose her to chronic aspirations We will treat her with nifedipine which will help with her diffuse esophageal spasms as well. 2. Severe presbyesophagus and diffuse spasm on a barium swallow that the patient did about a year ago. This could also potentially be causing some of her cough so we will use nifedipine to prevent the spasms and see if it will help. The patient will continue with the proton pump inhibitor. 3. Acute hypercarbic respiratory failure. Patient came in with pCO2 of 71, was placed on BiPAP. This has corrected. 4. Hypertension, stable. 5. Dyslipidemia, stable. PLAN: Today, Ms. Preciaod is doing a little better. She is off the BiPAP. I think her chronic cough is multifactorial : seasonal allergies, especially to environmental factors and chronic aspirations. We are going to continue with the nebulizations. We will continue with the steroids. I have added montelukast and I have discontinued her aspirin and losartan. We will observe her 1 day in the ICU. Hopefully, transfer her to the floor tomorrow if there is some improvement. cc: Chandrakant Salcedo MD MTDD
[2016-12-20] MEDS ORDERED: VANCOMYCIN 1 GM/NS 1 GM/250 ML IVPB IV ONE (12:23)
[2016-12-20] MEDS ORDERED: VANCOMYCIN IV PER PHARMACY MISC SCH (14:15)
[2016-12-20] MEDS ORDERED: VANCOMYCIN 500 MG/NS 500 MG/100 ML IVPB IV ONE (15:00)
[2016-12-20] MEDS: ATIVAN IV PRN (15:38)
--- NOTE | 2016-12-20 16:23 | Diag Imaging Result Document ---
PROCEDURE NAME: CT THORAX W/O CONTRAST - 12/20/2016 CT CHEST WITHOUT CONTRAST: FINDINGS: Compared to 06/30/2016. Dose reduction protocol. No pleural effusions. The heart is mildly prominent. No thoracic aortic aneurysm. No enlarged mediastinal or hilar lymph nodes. Minimal pleural thickening posteriorly on the left. There is a calcified granuloma in each lung base. Scarring is found in the left apex. There is an additional granuloma in the left upper lobe posteriorly. No consolidation. No bronchiectasis. There is atelectasis or fibrosis in the medial left base. IMPRESSION: 1. No pneumonia although there are scattered granuloma. 2. Mildly prominent heart.
[2016-12-20] MEDS: LEVAQUIN 500 MG/D5W 500 MG/100 ML IVPB IV SCH (21:16)
[2016-12-20] MEDS: COLACE PO SCH (21:17)
[2016-12-20] MEDS: CRESTOR PO SCH (21:17)
[2016-12-21] MEDS: ROBITUSSIN PO PRN ×3 (00:48→15:33)
[2016-12-21] MEDS: ATIVAN IV PRN ×7 (00:52→22:26)
[2016-12-21] MEDS: SOLU-MEDROL IV SCH ×3 (02:23→18:16)
[2016-12-21] MEDS: DUONEB (A & A) INH SCH ×6 (02:54→22:45)
[2016-12-21 05:17] LABS: ALLEN TEST YES; BE 4.2 mmoll (-3.0-3.0); BLOOD TYPE ARTERIAL; DRAW SITE R RADIAL; METHB 1.5 % (0.0-1.5); O2(CT) 25.4 mL/dL (15.0-23.0); PCO2(98.6) 46 mmHg (35-45); PO2(98.6) 67 mmHg (60-100); SAMPLE BLOOD; SAO2 96.1 % (95.0-100.0); THB 19.5 g/dL (11.5-17.4); pH(98.6) 7.42 (7.35-7.45)
[2016-12-21 05:18] LABS: MODALITY CANNULA
[2016-12-21 05:21] LABS: BASO% 0.1 % (0.0-0.8); HEMATOCRIT 39.1 % (37.0-47.0); HEMOGLOBIN 12.9 g/dL (12.0-16.0); IMM GRAN# 0.09 X1000 (0.0-0.04); IMM GRAN% 0.5 % (0.0-0.5); LYMPH# 1.13 X1000 (1.2-3.4); LYMPH% 6.6 % (20.5-51.1); MANUAL DIFF NEEDED? YES; MCH 31.9 PG (27-31); MCV 96.5 FL (81-99); MONO# 1.01 X1000 (0.11-0.59); MONO% 5.9 % (1.7-9.3); MPV 10.5 FL (7.4-10.4); NEUT% 86.9 % (42.2-75.2); PLT 272 X1000 (130-400); RBC 4.05 XMIL (4.2-5.4)
[2016-12-21 05:32] LABS: CALCIUM 10.4 mg/dL (8.8-10.2); POTASSIUM 3.3 mmol/L (3.5-5.1)
[2016-12-21 06:16] LABS: BANDS 10 % (0-1); LYMPHS 6 % (21-51); MONO 6 % (1-9)
[2016-12-21] MEDS: PROTONIX PO SCH (07:30)
[2016-12-21] MEDS: SYNTHROID PO SCH (07:30)
[2016-12-21] MEDS: CARAFATE LIQUID PO SCH ×4 (07:30→20:34)
[2016-12-21] MEDS: ADVAIR 250/50 DISKUS INH SCH ×2 (07:59→19:17)
[2016-12-21] MEDS ORDERED: ADALAT CC PO SCH (09:00)
[2016-12-21] MEDS: LASIX IV SCH (09:13)
[2016-12-21] MEDS: ICAR-C PO SCH ×2 (09:14→20:34)
[2016-12-21] MEDS: EFFEXOR XR PO SCH (09:14)
[2016-12-21] MEDS: SINGULAIR PO SCH (09:14)
[2016-12-21] MEDS: KLONOPIN PO SCH ×3 (09:14→16:33)
[2016-12-21] MEDS: NS 1,000 ML IV SCH ×2 (10:59→22:26)
--- NOTE | 2016-12-21 11:07 | PROGRESS NOTE ---
DATE: 12/21/2016 SUBJECTIVE: Today Ms. Preciado refers to be doing fine. Continues to have this persistent cough. OBJECTIVE: Vital signs: Blood pressure is 141/92, pulse of 94, respirations 20, temperature is 97.5 degrees. General Examination: Ms. Preciado is an 81-year-old female. She is in bed, not seemingly distressed. HEENT: Mucosa is pink, slightly dry. Anicteric. Acyanotic. Neck: Supple. Chest: Air entry is bilaterally reduced. There is a few diffuse end expiratory wheezing and prolonged expiratory phase of respirations. Cardiovascular: Regular rate and rhythm. Abdomen: Soft, nontender. Extremities: No pedal edema. SUPERVISOR FILLING AND PACKING: Patient is awake, alert, and oriented. LABORATORY DATA: WBC is 17.19, hemoglobin is 12.9, platelet count of 272,000. There is 10% of bands on peripheral smear. Chemistry is reviewed. Sodium is 141, potassium is 3.2, chloride is 99, bicarb 26, creatinine is slightly down to 1.4, calcium is 10.4. A CT scan of the chest done yesterday shows no pneumonia, although there is scarred granuloma, mild prominent heart. ASSESSMENT: 1. Chronic cough, etiology not clear. Sounds multifactorial, but it looks like it is more driven by chronic aspirations. 2. Severe presbyesophagus with diffuse spasm on barium swallow last year. The patient normally follows up with Dr. Espinoza in [place]. She has an appointment actually to see him tomorrow at about 2 p.m. I did try to call Dr. Espinoza's office at [phone]. Dr. Espinoza himself was not readily available, so the nursing secretary will get in touch with him and then give me a call back so we can arrange to see if patient can be sent to him and then brought back. Of note, the patient was given some Botox therapy about 2 weeks ago and according to her that remarkably improved her cough. 3. Hypertension. Stable. 4. Dyslipidemia. 5. Gram positive cocci bacteremia. Not quite sure what the source is. Lungs seem to be clear. We will do a urine culture and analysis. If urine is also clear, we will would go ahead and pursue more critically from the heart. 6. Leukocytosis with bandemia, likely due to underlying infection source, apparently not clear. We think it is from chronic aspiration pneumonia. The patient is currently on antibiotics, Stalevo and vancomycin. Will continue with the current plan. In general, Ms. Preciado continues to have a persistent cough. We are going to consult pulmonary medicine. Dr. Whitman has seen her before and the daughter, who is also the forest law and policy professor, wants Dr. Whitman to continued to see her. Will also consult Infectious Disease for the bacteremia, to help us with antibiotic therapy. As I said, I am still waiting on a call from Dr. Espinoza'rosio and then know what we will be doing going forward. cc: Chandrakant Salcedo MD
--- NOTE | 2016-12-21 13:59 | EKG Report ---
Test Performed on : 12/19/2016 6:35:46 PM Test Reason : ED. Cancelled in error Blood Pressure : / mmHG Vent. Rate : 088 BPM Atrial Rate : 069 BPM P-R Int : 168 ms QRS Dur : 086 ms QT Int : 340 ms P-R-T Axes : 073 -58 054 degrees QTc Int : 411 ms Undetermined rhythm Left axis deviation Abnormal ECG When compared with ECG of 27-AUG-2016 10:58, Current undetermined rhythm precludes rhythm comparison, needs review Criteria for Inferior infarct are no longer present ST no longer depressed in Lateral leads Unconfirmed Result
--- NOTE | 2016-12-21 16:46 | CONSULTATION ---
DATE OF CONSULTATION: 12/21/2016 PULMONARY CONSULTATION REQUESTING PHYSICIAN: Chandrakant Salcedo MD. REASON FOR CONSULTATION: Cough and positive blood cultures. HISTORY OF PRESENT ILLNESS: Ms. Preciado is an 81-year-old, white female, never smoker, who was admitted to the hospital last fall with persistent bronchitis with intractable cough. The patient underwent esophageal evaluation which revealed diffuse esophageal spasm with severe presbyesophagus. She underwent dilation of the esophagus during the hospitalization with some partial improvement. She subsequently was evaluated by Dr. Espinoza in [place] and underwent Botox injection for cricopharyngeal achalasia. She had significant improvement in her symptoms following this maneuver. Approximately 7-10 days ago she developed increased cough with increasing shortness of breath. The patient presented to the emergency room with acute respiratory distress and a pH of 7.26, pCO2 of 71, PO2 of 181 while on BiPAP. She has had some clinical improvement over the last 48 hours now is on nasal cannula at 4 L. PAST MEDICAL HISTORY: 1. Severe esophageal dysfunction with cricopharyngeal achalasia as per above. 2. Recurrent bronchitis/cough. 3. History of heart failure. 4. Dyslipidemia. 5. Cervical dystonia. 6. Chronic kidney disease. 7. Hypothyroidism. 8. Status post back surgery. 9. Status post neck surgery. 10. Status post hernia repair. 11. Status post hysterectomy. SOCIAL HISTORY: She is a never smoker. No alcohol use. FAMILY HISTORY: Noncontributory on current presentation. REVIEW OF SYSTEMS: Notable for cough and dyspnea. Patient's review of systems is negative for infectious signs or symptoms. PHYSICAL EXAMINATION: General: Reveals a healthy-appearing white female in no distress. Vital Signs: BP 134/83, heart rate 87, respiration rate 24, oxygen saturation 94% on 4 L nasal cannula. HEENT: Pupils are equal and reactive. Oropharynx is clear. Neck: Supple. Chest: Reveals wheezing on forced exhalation. Cardiac Examination: Regular rate. Normal S1, normal S2. Abdomen: Soft without hepatosplenomegaly. Extremities: Without edema. LABORATORIES: CT scan of the thorax on 12/20/2016 reveals generous cardiac silhouette. There are no acute infiltrates. IMPRESSION: An 81-year-old, never smoker, recurrent cough due to esophageal dysfunction, who presented to the emergency room with acute hypoxemic and hypercapnic respiratory failure. The patient's CT scan is negative. She does have 2 blood cultures which were positive but the etiology for the positive blood cultures have not yet been determined. The etiology for the acute respiratory distress is not clear. The patient reports that with coughing she has the sensation that her vocal cords were obstructed by her epiglottis. This would be unusual but not out of the realm of possibility. RECOMMENDATIONS: 1. Await blood culture reports and do additional evaluation pending results of this data. 2. Patient will need repeat Botox injection of the cricopharyngeal muscle or she will need a surgical myotomy. 3. Additional recommendations pending hospital course. cc: Tian Whitman MD
--- NOTE | 2016-12-21 18:23 | CONSULTATION ---
DATE OF CONSULTATION: 12/21/2016 CONCLUSION: The patient has positive blood cultures for gram-positive cocci. The organism has not yet been identified. She his been coughing quite a bit because she has esophageal achalasia and I would think that her bacteremia chandu somewhere in the respiratory tract such as in the lungs even though her CT scan of the chest does not show any consolidation. Her urinalysis shows no white cells or bacteria and thus I doubt the urine is the source of her positive blood cultures. On the CT scan also they did not see any evidence of a perforated esophagus which could be the source of the positive blood cultures. The patient also has a penicillin allergy the manifestations of which are not known by the patient's daughter. RECOMMENDATIONS: I agree with the patient's current antibiotics chosen by Dr. Salcedo namely vancomycin and Levaquin. I have made the patient NPO because according to the patient's daughter, the patient does aspirate when taking things by mouth. DISCUSSION: The patient has been having horrible coughing spells and she has finally now gotten a little bit of rest after being sedated, therefore, I did not try to wake her up. I did somewhat of a limited physical examination in order not to disturb her. The history I obtained from talking to the patient's daughter and also from looking at the data in the computer. PAST MEDICAL HISTORY: The patient has a past medical history positive for COPD, hypertension, congestive heart failure, hyperlipidemia, esophageal achalasia, cervical dystonia, chronic kidney disease, anemia, and hypothyroidism. PAST SURGICAL HISTORY: The patient's past surgical history is positive for back surgery, C-spine surgery, hernia repair with placement of a large mesh, hysterectomy, labor and deliveries. RANGE FEEDER HISTORY: She is a 4, para 4, AB 0. She has had a hysterectomy as mentioned above. ALLERGIES: Codeine, morphine, penicillin, sulfa and tetracycline. The daughter thought that the patient was not allergic to Keflex. HOME MEDICATIONS: Hydrochlorothiazide, venlafaxine, Carafate, Crestor, potassium, Protonix, Cozaar, Synthroid, hydrocodone, Colace, Klonopin, Symbicort, aspirin and albuterol. DIAGNOSTIC DATA: Laboratory studies thus far show the following. The patient's CBC shows a white count of 17,190, hemoglobin 12.9, and platelet count 272,000. Her creatinine is 1.4. GFR is 36. Blood gases show a pH of 7.42, PO2 of 67, pCO2 of 46. Two blood cultures are growing gram- positive cocci. Sputum culture is negative. Additional blood cultures and urine culture are pending. Urinalysis showed no white cells or bacteria. Liver function studies were normal. As mentioned above, CT scan of the chest showed no consolidation. PHYSICAL EXAMINATION: Vital Signs: Temperature is 97.5 degrees, pulse 95, respirations 29, blood pressure 134/83. Patient's weight is listed as 176 pounds. General: This is an obese, elderly female. She currently is sleeping and as mentioned above I did not want to wake her up because she has been having so much problem with cough. Head, eyes, ears, nose, throat: No drainage is noted from the nose or ears. Lungs: Bilateral rhonchi. Cardiovascular: Heart rate was regular. Abdomen: Soft. I did not press it hard to see if she had tenderness. Extremities: Both legs are edematous but not erythematous. Neurologic: As mentioned above, the patient is sleeping at this time. Integument: I did not see a rash. Thank you for the consultation. cc: Dhiraj Mcgowan MD
[2016-12-21] MEDS: COLACE PO SCH (20:34)
[2016-12-21] MEDS: CRESTOR PO SCH (20:34)
[2016-12-21] MEDS: LEVAQUIN 500 MG/D5W 500 MG/100 ML IVPB IV SCH (20:44)
[2016-12-22] MEDS: ATIVAN IV PRN ×4 (02:16→20:08)
[2016-12-22] MEDS: SOLU-MEDROL IV SCH ×3 (02:16→18:34)
[2016-12-22] MEDS: DUONEB (A & A) INH SCH ×6 (03:04→22:49)
[2016-12-22 04:28] LABS: ALLEN TEST YES; BE 6.3 mmoll (-3.0-3.0); BLOOD TYPE ARTERIAL; DRAW SITE R RADIAL; METHB 1.6 % (0.0-1.5); O2(CT) 17.9 mL/dL (15.0-23.0); PCO2(98.6) 45 mmHg (35-45); PO2(98.6) 60 mmHg (60-100); SAMPLE BLOOD; SAO2 94.6 % (95.0-100.0); pH(98.6) 7.45 (7.35-7.45)
[2016-12-22 04:29] LABS: MODALITY CANNULA
[2016-12-22 05:49] LABS: BASO% 0.1 % (0.0-0.8); HEMOGLOBIN 12.1 g/dL (12.0-16.0); IMM GRAN# 0.06 X1000 (0.0-0.04); IMM GRAN% 0.4 % (0.0-0.5); LYMPH# 0.75 X1000 (1.2-3.4); LYMPH% 5.1 % (20.5-51.1); MANUAL DIFF NEEDED? YES; MCH 31.8 PG (27-31); MCHC 32.7 g/dL (33-37); MCV 97.1 FL (81-99); MONO# 0.57 X1000 (0.11-0.59); MONO% 3.9 % (1.7-9.3); MPV 10.6 FL (7.4-10.4); NEUT% 90.5 % (42.2-75.2); PLT 215 X1000 (130-400); RBC 3.81 XMIL (4.2-5.4)
[2016-12-22 05:54] LABS: CALCIUM 9.5 mg/dL (8.8-10.2); POTASSIUM 3.4 mmol/L (3.5-5.1)
[2016-12-22] MEDS: CARAFATE LIQUID PO SCH (06:13)
[2016-12-22] MEDS: SYNTHROID PO SCH (06:13)
[2016-12-22] MEDS: PROTONIX PO SCH (06:13)
[2016-12-22 06:39] LABS: LYMPHS 6 % (21-51); MONO 2 % (1-9)
[2016-12-22] MEDS: ADVAIR 250/50 DISKUS INH SCH ×2 (07:22→18:55)
--- NOTE | 2016-12-22 07:44 | CONSULTATION ---
DATE OF CONSULTATION: 12/20/2016 REFERRING PHYSICIAN: Dr. Overton. CHIEF COMPLAINT: Cough and shortness of breath. HISTORY OF PRESENT ILLNESS: This is an 81-year-old female with a past medical history of COPD, CHF, hypertension, hypothyroidism who presented to the ER with shortness of breath. States that this been on for several weeks. She was moved to the ICU for evaluation of her acute respiratory failure secondary to COPD exacerbation. She was placed on BiPAP. She denies any fever, chills, chest pain, hemoptysis, syncope, palpitations, abdominal pain, nausea, vomiting or diarrhea. PAST MEDICAL HISTORY: As mentioned in HPI, otherwise noncontributory. PAST SURGICAL HISTORY: Back surgery, neck surgery, hernia repair, hysterectomy. ALLERGIES: Codeine, morphine, penicillin, sulfa, tetracycline. SOCIAL HISTORY: Patient denies any history of tobacco, alcohol or illicit drug abuse. FAMILY HISTORY: Noncontributory. ACTIVE MEDICATIONS: Tylenol, DuoNeb, aspirin, Klonopin, Colace, Lasix, Robitussin, Icar-C, Levaquin, Synthroid, Solu-Medrol, Singulair, Zofran, Protonix, Crestor, Carafate, Effexor. PHYSICAL EXAMINATION: Vital Signs: Temperature 98.2, blood pressure 127/76, pulse rate 87, respiratory rate 24, oxygen saturations 94%. General: Awake, alert, sitting up in bed, no acute distress noted. HEENT: Normocephalic, atraumatic. PERRL. Cardiovascular: Regular rate and rhythm S1-S2 present. Chest: Reduced entry with some scattered rhonchi. Extremities: Trace pedal edema noted. Neurologic: Alert, orient x2. LABS INVESTIGATIONS: WBC 6.63, RBCs 3.91, hemoglobin 12.5, hematocrit 38.2, platelet count 208,000. Sodium 144, potassium 3.5, chloride 97, CO2 29, anion gap 18, BUN 18, creatinine 1.7, glucose 165. Blood gas reveals a pH 7.4, pCO2 of 50, PO2 of 258, HC03 of 28.9, base excess 5.1, saturated oxygen of 99. Chest x-ray performed on 12/19/2016 shows stable chest. ASSESSMENT AND PLAN: This is a 81-year-old female with past medical history mentioned history of present illness that is admitted to intensive care unit for evaluation of her acute respiratory failure and chronic obstructive pulmonary disease exacerbation. She also has a history of congestive heart failure, hypertension, hyperlipidemia, hypothyroidism. Will continue BiPAP, repeat ABGs, inhaled bronchodilators, diurese with Lasix, broad-spectrum antibiotic therapy, IV steroids, gastrointestinal prophylaxis and SCDs for DVT prophylaxis at this time. Further recommendations pending diagnostic studies. Thank for the courtesy this consult. Dictated by DAWOOD Hennessy for Danna Mora MD cc: DAWOOD Hennessy MD
[2016-12-22] MEDS: LASIX IV SCH (08:47)
--- NOTE | 2016-12-22 08:57 | ECHO REPORT ---
ORDER DATE: 12/21/2016 ECHOCARDIOGRAPHIC MEASUREMENTS: 1. Interventricular septum 1.2, left ventricular posterior wall 1.2, diastolic diameter 4.7, left atrium 3.1, aorta 2.7. Technically suboptimal study. 2. Aortic valve leaflets were trileaflet. There was calcification noted. Mitral valve leaflet was normal. There is mitral annular calcification. 3. Pulmonic valve not well visualized. 4. Peak velocity across the aortic valve less than 2 m/sec by Doppler studies. There is no aortic stenosis or regurgitation. There is mild mitral regurgitation, mild tricuspid regurgitation. Peak velocity across the tricuspid valve was 3.1 m/sec. Pulmonary artery systolic pressure of 40 mmHg. 5. Normal left ventricular cavity size. Estimated ejection fraction of 50%. Endocardium not well visualized in all views. There is anteroseptal hypokinesis. 6. There is no pericardial effusion. 7. I would recommend a transesophageal echocardiogram if clinically indicated as the echocardiogram was requested to rule out endocarditis. cc: MD Chandrakant Robertson MD
[2016-12-22] MEDS: SODIUM CHLORIDE 0.9% INJ SCH (10:08)
[2016-12-22] MEDS: PROTONIX IV SCH (10:09)
[2016-12-22] MEDS: SYNTHROID IV SCH (11:24)
[2016-12-22] MEDS: SODIUM CHLORIDE 0.9% INJ PRN (11:25)
--- NOTE | 2016-12-22 14:16 | PROGRESS NOTE ---
DATE: 12/22/2016 Today Ms. Preciado referred to be doing a little better. She was not having that much of coughing since she has been kept NPO. OBJECTIVE: Vital signs: Blood pressure is 122/70, pulse of 125, respirations 26, temperature is 97 degrees. Patient is saturating 96% on 5 L of oxygen. General: Ms. Preciado is an 81-year- old female. She is in bed. HEENT: Mucosa is slightly dry. Anicteric, acyanotic. Neck: Supple. Chest: Air entry is bilaterally reduced. There are a few bibasilar crepitations and some expiratory wheezing. Cardiovascular: Regular rate and rhythm. Slightly tachycardic. Abdomen: Soft. USPS LETTER CARRIER: The patient is alert and oriented. No focal neurological deficit. LABORATORY DATA: WBC is 14.74, hemoglobin is 12.1, platelet count of 215,000. Chemistry is reviewed. Creatinine is down to 1.2 from 1.7. Blood cultures positive for staph hominis. ASSESSMENT: 1. Chronic cough likely secondary to chronic aspiration. Patient is now NPO and coughing has improved. 2. Severe presbyesophagus with diffuse spasms. Patient refers to have had EGD with Botox therapy with Dr. Carvalho. I was able to reach out to them yesterday and they plan to repeat the therapy once the patient is stable for outpatient therapy. 3. Staph hominis bacteremia. I think the source is from the upper airway with the coughing. Will continue with the IV vancomycin. I have discontinued the Levo and we are awaiting the culture results of the 2nd sample. 4. Nutritional needs. At this point patient will continue to be NPO. We are going to start her on Clinimix with lipid infusion. I think the bottom line will be how do we feed her going forward and one of the plans will be just to clean the infection and let her see Dr. Carvalho to see if they would want to do another Botox injection and improve her coughing and then be able to eat. Or on the long-term start thinking about a PEG tube versus jejunostomy tube for feedings. We will give further recommendation on regards to that when the bacteremia is taken care of. cc: Chandrakant Salcedo MD
[2016-12-22] MEDS: CLINIMIX E 4.25%-5% SOLUTION 1,000 ML IV SCH (14:35)
[2016-12-22] MEDS: VANCOMYCIN 1 GM/NS 1 GM/250 ML IVPB IV SCH (14:39)
[2016-12-22] MEDS ORDERED: VANCOMYCIN 1 GM/NS 1 GM/250 ML IVPB IV SCH (15:00)
[2016-12-22] MEDS: LIPOSYN 20% 250 ML IV SCH (15:02)
[2016-12-22] MEDS ORDERED: DILAUDID IV ONE (15:52)
--- NOTE | 2016-12-22 17:35 | PROGRESS NOTE ---
DATE: 12/22/2016 PRESENT ILLNESS: The patient has a Staph hominis bacteremia. Both of her blood cultures are growing that organism. The origin of this is uncertain to me. MEDICATIONS: The patient currently is receiving vancomycin as a single agent. PHYSICAL EXAMINATION: Vital Signs: Temperature is 98.1 degrees, pulse 120, respirations 21, blood pressure 128/86. General: This is a somewhat lethargic elderly female. She is in no acute distress. She had been given some sedation because she became very excited and it was best to calm her down. Lungs: There were exploratory wheezes bilaterally. Cardiovascular: The patient's heart rate was regular with frequent premature beats. Abdomen: Soft and not tender. LAB AND X-RAY: There is no new x-ray. The patient's echocardiogram did not show any vegetations. Urine culture is negative. Blood cultures, 2 sets of blood cultures are growing Staph hominis. [place] [address], hemoglobin 12.1, and platelet count 215,000. Creatinine is 1.2. GFR is 43. Blood gases show a pH of 7.45, a PO2 of 60, and a pCO2 of 45. Creatinine is 1.2. GFR is 43. ASSESSMENT AND PLAN: Patient has a Staph bacteremia the exact origin of which is uncertain to me. A regular echocardiogram did not show any vegetations. I would like to get a transesophageal echocardiogram. I am going to talk to Cardiology. Patient does have a problem with her esophagus and she may not be a candidate to be able to do a transesophageal echocardiogram. The patient's comorbidities include she is very elderly and she has cervical dystonia. cc: Dhiraj Mcgowan MD
[2016-12-22] MEDS: DILAUDID IV PRN (23:43)
[2016-12-23] MEDS: ATIVAN IV PRN ×4 (00:40→19:45)
[2016-12-23] MEDS: SOLU-MEDROL IV SCH ×3 (02:42→20:55)
[2016-12-23] MEDS ORDERED: VANCOMYCIN 1 GM/NS 1 GM/250 ML IVPB IV SCH (03:00)
[2016-12-23] MEDS: DUONEB (A & A) INH SCH ×6 (03:08→22:42)
[2016-12-23] MEDS: DILAUDID IV PRN ×2 (03:23→11:27)
[2016-12-23] MEDS: CLINIMIX E 4.25%-5% SOLUTION 1,000 ML IV SCH ×2 (03:23→17:03)
[2016-12-23 04:26] LABS: ALLEN TEST YES; BE 2.8 mmoll (-3.0-3.0); BLOOD TYPE ARTERIAL; DRAW SITE R RADIAL; MODALITY CANNULA; O2(CT) 15.4 mL/dL (15.0-23.0); PCO2(98.6) 50 mmHg (35-45); PO2(98.6) 61 mmHg (60-100); SAMPLE BLOOD; SAO2 91.2 % (95.0-100.0); THB 12.1 g/dL (11.5-17.4); pH(98.6) 7.37 (7.35-7.45)
[2016-12-23] MEDS: SYNTHROID IV SCH (06:32)
[2016-12-23] MEDS ORDERED: SYNTHROID IV SCH (07:00)
[2016-12-23 07:08] LABS: CALCIUM 9.6 mg/dL (8.8-10.2); POTASSIUM 3.5 mmol/L (3.5-5.1)
[2016-12-23 07:10] LABS: BASO% 0.1 % (0.0-0.8); HEMATOCRIT 38.9 % (37.0-47.0); HEMOGLOBIN 12.7 g/dL (12.0-16.0); IMM GRAN# 0.18 X1000 (0.0-0.04); IMM GRAN% 1.1 % (0.0-0.5); LYMPH# 0.83 X1000 (1.2-3.4); LYMPH% 5.2 % (20.5-51.1); MANUAL DIFF NEEDED? YES; MCHC 32.6 g/dL (33-37); MONO# 0.95 X1000 (0.11-0.59); MONO% 5.9 % (1.7-9.3); MPV 11.1 FL (7.4-10.4); NEUT% 87.7 % (42.2-75.2); PLT 205 X1000 (130-400); RBC 3.97 XMIL (4.2-5.4)
[2016-12-23] MEDS: ADVAIR 250/50 DISKUS INH SCH ×2 (08:12→19:00)
[2016-12-23 08:21] LABS: BANDS 6 % (0-1); LYMPHS 8 % (21-51); MONO 4 % (1-9)
--- NOTE | 2016-12-23 08:42 | Diag Imaging Result Document ---
PROCEDURE NAME: CHEST-PORTABLE - 12/23/2016 SINGLE FRONTAL RADIOGRAPH OF THE CHEST: COMPARISON: 12/19/2016. FINDINGS: There appears to be mild blunting of the left costophrenic angle that has developed suggesting a trace effusion. No new consolidations are identified, otherwise. Cardiac silhouette and central vasculature are stable. IMPRESSION: Potential development of a small left pleural effusion.
[2016-12-23] MEDS: LASIX IV SCH (09:05)
[2016-12-23] MEDS: SODIUM CHLORIDE 0.9% INJ SCH (09:05)
[2016-12-23] MEDS: PROTONIX IV SCH ×2 (09:05→17:04)
--- NOTE | 2016-12-23 12:33 | EKG Report ---
Test Performed on : 12/23/2016 12:17:47 PM Test Reason : RYTHYM ANALYSIS Blood Pressure : / mmHG Vent. Rate : 112 BPM Atrial Rate : 112 BPM P-R Int : 152 ms QRS Dur : 072 ms QT Int : 398 ms P-R-T Axes : 060 -58 269 degrees QTc Int : 543 ms Sinus tachycardia. with frequent premature ventricular complexes. Left axis deviation Low voltage QRS Possible Anterolateral infarct , age undetermined Abnormal ECG When compared with ECG of 19-DEC-2016 18:35, Previous ECG has undetermined rhythm, needs review Borderline criteria for Anterolateral infarct are now present Non-specific change in ST segment in Lateral leads T wave inversion now evident in Lateral leads Confirmed by Anthony BATES, Brandt Goff ([id number]) on 12/24/2016 12:08:45 PM
[2016-12-23] MEDS: LIPOSYN 20% 250 ML IV SCH (14:17)
--- NOTE | 2016-12-23 15:23 | PROGRESS NOTE ---
DATE: 12/23/2016 SUBJECTIVE: This morning, Ms. Preciado referred to be doing a little better. Continues to have some cough, but not as rampant as before. Of note, I understand patient had a spell of cough which lasted for over 45 minutes early this morning and ended up bringing up some dark sputum, like a bezoar. PHYSICAL EXAMINATION: Vital Signs: On general exam, her vitals, blood pressure is 154/93, pulse of 117. Respirations 25, temperature is 97.2. General: Ms. Preciado is an 81-year-old, female. She is in bed, not seemingly distressed. HEENT: Mucosa is pink and moist. Anicteric. Acyanotic. Neck: Supple. Chest: Good air entry bilateral. There are a few bibasilar crepitations. No rhonchi. Cardiovascular: Regular rate and rhythm. No murmurs, no rubs. No gallops. Abdomen: Soft. No hepatosplenomegaly. SALES TRAINEE: Patient is alert, is oriented. Follows commands. There is no any new focal neurological deficit. LABORATORY DATA: WBC is 16.10, hemoglobin is 12.7, platelet count of 205. There is only 6% of bands on peripheral smear. Chemistry is reviewed. Sodium is 145, potassium is 3.5, chloride is 104, BUN is 31 and creatinine is 1.2. ASSESSMENT: 1. Chronic cough, likely due to chronic aspirations. 2. Severe presbyesophagus with diffuse spasms. 3. Staphylococcus hominis bacteremia. So far, a TTE has been negative, but I do not think patient will be able to tolerate a transesophageal echocardiogram. Infectious disease is on board. I think will probably just have to assume and treat for the length of possible endocarditis. 4. Nutritional needs. At this point, patient continues to be n.p.o. She is currently on Clinimix with lipid infusion. 5. Blood cultures have now been negative. The subsequent blood cultures have been negative for 48 hours. PLAN: I will go ahead and consult PICC line team and plan is once the patient has a PICC line, we will be able to switch her to total parenteral nutrition (TPN) and let her go home on TPN for the short term, while she will get an appointment with Dr. Carvalho's office for the Botox therapy. If she is successful and she restarts the enteral route for feeding, then they can stop the TPN on outpatient basis. If she fails the Botox procedure, then they would have to continue at least for the short term the TPN while they arrange for possible PEG tube/jejunostomy for enteral feeding. cc: Chandrakant Salcedo MD MTDD
--- NOTE | 2016-12-23 15:39 | PROGRESS NOTE ---
DATE: 12/23/2016 SUBJECTIVE: Patient resting in bed. She denies any nausea or vomiting today. She had a formed green stool yesterday. She is only eating some bites. She is currently being investigated for Staph bacteremia per the Primary Care Team and Infectious Disease Team. The patient has a known history of cervical dystonia and gets Botox injections every 3 months at [facility]. Her last EGD with Botox injection of the lower esophageal sphincter was done by Dr. Espinoza at [facility] 3 months ago. She was scheduled to go see him last Wednesday, but was in the hospital with pneumonia and Staph bacteremia. OBJECTIVE: Vital signs: Temperature of 97.2 degrees, pulse rate 117, respiratory rate 25, blood pressure of 154/93, saturating 97% on 5 L nasal cannula. General Appearance: Body weight of 176 pounds 8 ounces. BMI of 38.2 kg/m2. Mildly obese, lying in bed, in no acute distress. HEENT: No pallor. No icterus. Neck: Supple. Abdomen: Mildly protuberant, soft, nontender, nondistended. Bowel sounds are hypoactive. No guarding. Extremities: No cyanosis, clubbing. Neurologic: She is alert, awake, oriented. LABORATORY: Hemoglobin and hematocrit is 12.7 and 38.9, white count of 16.1, platelet count of 205,000, MCV of 98. INR 1.02, sodium 144, potassium 3.5, chloride 104, bicarb 25, anion gap 16, BUN of 31, creatinine 1.2, glucose of 130. Calcium of 9.6. AST 32, ALT 16, alkaline phosphatase is 73, total protein is 7.4, albumin of 4.1, lactate of 2, bilirubin is 0.7. Urine strep pneumoniae antigen is negative. Sputum culture is currently pending. Urine culture is no growth. Blood culture has been negative x2 after 48 hours. The sputum culture on 12/20 showed 1+ white cells, 2+ gram-positive cocci, and the final report was normal [place] and there blood culture is showing Staph hominis. IMAGING: CT of the chest was done which showed no pneumonia although there were scattered granuloma, mildly prominent heart. She had imaging in the form of CT of the abdomen done on 06/23/2016 which showed constipation, diverticulosis coli. IMPRESSION AND PLAN: 1. Chronic cough secondary to chronic aspiration secondary to esophageal achalasia. She has received Botox treatment per Dr. Espinoza at [facility] 3 months ago. The patient will follow with Dr. Espinoza as an outpatient on discharge. She will continue on aspiration precautions for now. 2. Reflux disease. Patient will continue on proton pump inhibitors for now and take small frequent meals and chew the food very well. 3. Staph hominis bacteremia. The patient is currently on IV vancomycin, Infectious Disease team is trying to locate the possible source of this infection. 4. Constipation. We will continue patient on Dulcolax and MiraLAX. 5. Diverticulosis. The patient will avoid corn, nuts, and seeds in diet and increase fiber intake to 25-30 g of fiber. 6. We will be available if needed. Please call us for any further questions. I discussed the above plan of care with the patient and the family at bedside. All questions answered. cc: MD Chandrakant Murray MD Leroy F. Harris, MD James E. Boyle, MD Luis N. Villanueva, MD
--- NOTE | 2016-12-23 16:29 | CONSULTATION ---
DATE OF CONSULTATION: 12/23/2016 CHIEF COMPLAINT: Persistent cough. REASON FOR CONSULTATION: The patient has a positive blood culture of Staphylococcus hominis. Consider transesophageal echo. HISTORY OF PRESENT ILLNESS: Ms. Preciado is a 81-year-old female known to me. I saw her at my office on 12/16/2016 when she presented for a cardiology follow-up. The patient presented with an increasing and persistent cough associated with wheezing. At that time I recommended a pulmonary evaluation. On 12/19/2016 she became extremely short of breath, coughing real hard, and in fact she fainted at some point and she was advised to come to the Emergency Room. Upon presentation to the E.R. they did an EKG on her that showed sinus rhythm with frequent PVCs in the form of ventricular bigeminy. The patient has been given Solu-Medrol and bronchodilators and the cough has improved some. In addition, they have given her some Ativan and that seems to relax her and she is doing better that way. She denies having any chest pain. They did a CT scan of the chest on 12/20/2016 which shows no pneumonia, mildly prominent heart, and there is some coronary calcification in the LAD noted on that particular CT. An echocardiogram was done on 12/21/2016 that shows no evidence of any significant valvular abnormality, however, the contractility of the left ventricular is abnormal. We do have her previous echo done in September of 2016 as an outpatient and the echo done 2 days ago is very abnormal suggesting a wall motion abnormality typical of a stress related cardiomyopathy or Takotsubo's. The patient's initial set of blood work showed a CPK of 267. Troponin was 0.12. ProBNP was 1558; normal is up to 450. It would be about 4 times the baseline. BUN was 16 and creatinine 1.7. White count initially was 12,850 and hemoglobin was 13.7. D-dimer was 0.67. They alis blood cultures on her and that is growing a Staphylococcus hominis which is resistant to erythromycin and oxacillin. It is also resistant to sulfa-trimethoprim. Dr. Dhiraj Mcgowan from Infectious Disease is requesting a TADEO for possible endocarditis. PAST MEDICAL HISTORY: Her past history is positive for COPD. She has a history of hypertension and hyperlipidemia. 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 Lately she has been treated by Dr. Howard in [place] using Botox shots to the cricopharyngeal area of the esophagus with some improvement in the recurrent cough. Dr. J Carlos garcia [facility] has seen her before and he is following her at this time. PAST SURGICAL HISTORY: Her surgical history is positive for cervical spine surgery, back surgery, bladder surgery, hysterectomy, and hernia repair. SOCIAL HISTORY: She is . She is retired. She has 3 children. She is not a smoker. FAMILY HISTORY: Family history is really noncontributory. REVIEW OF SYSTEMS: Persistent cough, shortness of breath, and general debility. No chest pains. Poor appetite. No urinary symptoms. No active musculoskeletal pains. No visual or hearing problems. No skin disorder. No psychiatric illness at this time other than a stable baseline dementia. ENT: No active complaints. No palpitations. No swelling of her legs. PHYSICAL EXAMINATION: VITAL SIGNS: Today her blood pressure is 128/85, pulse 105, temperature 97 degrees, and respirations 20. GENERAL: She is elderly, awake, alert, and coughing frequently. She is somewhat pale. HEENT: Otherwise unremarkable. NECK: Her neck today is not as stiff as it has been when going to the office. She can turn a little bit to the left side and it looks like Ativan is helping in that regard. RESPIRATORY: The chest shows bilateral rhonchi and wheezes. CARDIOVASCULAR: Heart sounds are distant and regular. No gallop or murmur. ABDOMEN: The abdomen is obese and nontender. EXTREMITIES: The extremities show decreased pulses. No edema. NEUROLOGICAL: She moves all extremities. IMPRESSION: 1. Patient presenting with an incessant cough, probably related to recurrent aspiration pneumonia and cricopharyngeal achalasia. 2. Patient has an echocardiogram suspicious for stress related cardiomyopathy or Takotsubo's cardiomyopathy. 3. Coronary artery calcification noted on CT scan of the chest. 4. Positive blood culture, possible septicemia to Staphylococcus hominis. Possibility of endocarditis is being entertained. 5. COPD/Bronchospasm. 6. Prior MRSA pneumonia. RECOMMENDATIONS: At this point in time Ms. Preciado is really not stable enough to proceed with transesophageal echocardiogram at a reasonable risk. I would suggest to postpone that test until the patient's respiratory status stabilizes. I believe we should probably give her antibiotics that cover that particular microorganism and consider a follow- up regular echo in 7 days or so to see if there has been any change in the cardiac valves. At this point in time there is no evidence of any valvular dysfunction of any severity to suspect that we are dealing with a serious case of endocarditis. She also does not have the stigmata of peripheral embolism. Regarding the Stress related cardiomyopathy, the trigger event was probably the Syncopal episode that happened on Tuesday 12/19. Due to active bronchospasm,wheezing, she would not be able to tolerate betablockers which would be the drugs of choice. Alternatively we could try combination of ACEinhibitors + ARB's+ spironolactone. Probably watchful waiting is indicated at this time. I will discuss this with Dr. Mcgowan and we will take it from there. cc: Danny Hernandez MD MTDD
--- NOTE | 2016-12-23 19:58 | PROGRESS NOTE ---
DATE: 12/23/2016 PRESENT ILLNESS: The patient has a Staph bacteremia, the exact origin of which is uncertain to me. I agree with Dr. Hernandez that it seems very unlikely that the patient has endocarditis. MEDICATIONS: Patient is receiving vancomycin as a single agent. PHYSICAL EXAMINATION: Vital Signs: Temperature is 97.8 degrees, pulse 83, respirations 16, blood pressure 124/83. Generally: The patient looks much better tonight. She is awake. She is talking. She can move her extremities. Lungs: Clear to auscultation. Cardiovascular: Heart rate is regular. The heart rate is regular. There were premature beats. I did not hear a murmur. Abdomen: Soft and nontender. LABORATORY AND X-RAY: Chest x-ray shows a small left pleural effusion. Patient's CBC shows a white count of 1610, hemoglobin 12.7, and platelet count 205,000. Blood cultures are growing Staph hominis. Repeat blood cultures are pending. Pneumococcal antigen was negative. Creatinine is 1.2. GFR is 43. Blood gases show a pH of 7.34, a PO2 of 61, and a pCO2 of 50. ASSESSMENT AND PLAN: 1. The patient has bacteremia. My plan is to continue vancomycin for 14 days. 2. Comorbidities include that she is very elderly and she also has cervical dystonia. cc: Dhiraj Mcgowan MD
[2016-12-23] MEDS: DULCOLAX PR SCH (20:55)
[2016-12-24] MEDS: ATIVAN IV PRN ×5 (00:12→22:08)
[2016-12-24] MEDS: DUONEB (A & A) INH SCH ×6 (02:53→23:19)
[2016-12-24] MEDS: SODIUM CHLORIDE 0.9% INJ PRN (04:02)
[2016-12-24] MEDS: PROTONIX IV SCH ×2 (04:02→14:57)
[2016-12-24 04:35] LABS: ALLEN TEST YES; BE 5.5 mmoll (-3.0-3.0); BLOOD TYPE ARTERIAL; DRAW SITE R RADIAL; METHB 1.2 % (0.0-1.5); O2(CT) 15.9 mL/dL (15.0-23.0); PCO2(98.6) 42 mmHg (35-45); PO2(98.6) 75 mmHg (60-100); SAMPLE BLOOD; SAO2 98.9 % (95.0-100.0); THB 11.8 g/dL (11.5-17.4); pH(98.6) 7.46 (7.35-7.45)
[2016-12-24 04:36] LABS: MODALITY CANNULA
[2016-12-24 05:22] LABS: INR 1.04; PROTIME 10.9 Seconds (9.2-11.7)
[2016-12-24 05:28] LABS: BASO% 0.1 % (0.0-0.8); HEMATOCRIT 35.9 % (37.0-47.0); HEMOGLOBIN 11.9 g/dL (12.0-16.0); IMM GRAN% 0.9 % (0.0-0.5); LYMPH# 0.77 X1000 (1.2-3.4); LYMPH% 6.6 % (20.5-51.1); MANUAL DIFF NEEDED? YES; MCH 32.1 PG (27-31); MCHC 33.1 g/dL (33-37); MCV 96.8 FL (81-99); MONO# 0.75 X1000 (0.11-0.59); MONO% 6.4 % (1.7-9.3); MPV 11.1 FL (7.4-10.4); PLT 160 X1000 (130-400); RBC 3.71 XMIL (4.2-5.4)
[2016-12-24 05:44] LABS: CALCIUM 9.8 mg/dL (8.8-10.2); POTASSIUM 3.6 mmol/L (3.5-5.1)
[2016-12-24] MEDS: CLINIMIX E 4.25%-5% SOLUTION 1,000 ML IV SCH ×2 (05:50→14:05)
[2016-12-24] MEDS: SYNTHROID IV SCH (06:10)
--- NOTE | 2016-12-24 06:12 | EKG Report ---
Test Performed on : 12/24/2016 05:14:25 AM Test Reason : stress related cardiomyopathy Blood Pressure : / mmHG Vent. Rate : 109 BPM Atrial Rate : 109 BPM P-R Int : 136 ms QRS Dur : 072 ms QT Int : 298 ms P-R-T Axes : 033 -62 113 degrees QTc Int : 401 ms Sinus tachycardia. with occasional premature ventricular complexes. Left axis deviation Low voltage QRS Nonspecific ST and T wave abnormality Abnormal ECG When compared with ECG of 23-DEC-2016 12:17, (Unconfirmed) No significant change was found Confirmed by Brandt Cruz MD ([id number]) on 12/24/2016 12:10:17 PM
[2016-12-24 06:51] LABS: BANDS 2 % (0-1); LYMPHS 2 % (21-51); MONO 2 % (1-9)
[2016-12-24] MEDS: DILAUDID IV PRN ×5 (07:02→23:08)
[2016-12-24] MEDS ORDERED: D5 1/4 NS 1,000 ML IV SCH (07:54)
[2016-12-24] MEDS: ADVAIR 250/50 DISKUS INH SCH ×2 (07:56→19:22)
[2016-12-24] MEDS: LOPRESSOR PO SCH (08:18)
[2016-12-24] MEDS: ALDACTONE PO SCH (08:18)
[2016-12-24] MEDS: MIRALAX PO SCH (08:19)
[2016-12-24] MEDS: LASIX IV SCH (08:22)
[2016-12-24] MEDS: SOLU-MEDROL IV SCH ×2 (08:22→21:03)
[2016-12-24] MEDS: LOPRESSOR IV SCH ×6 (08:23→23:25)
[2016-12-24] MEDS ORDERED: NS 250 ML ONE (09:34)
--- NOTE | 2016-12-24 09:54 | PROGRESS NOTE ---
DATE: 12/24/2016 CHIEF COMPLAINT: Shortness of breath, cough. SUBJECTIVE: Mrs. Preciado appears to be coughing less today. Her airways appear to be much clearer. She is not wheezing as much. She is not having any pain. She appears to be more rested this morning. OBJECTIVE: Vital signs: Blood pressure is 154/100, temperature 97.8, pulse is variable from 100 to 110. HEENT: She has a little bit of torticollis to the right side. Chest: Less wheezing. Some rhonchi especially at the bases. Heart: Heart sounds are slightly irregular. She has frequent premature beats. Abdomen: Obese. Extremities: Palpable pulses. No obvious edema. Neurologic exam: Follows commands. Moves all 4 extremities. BLOOD WORK, 12/24/2016: White count has come down to 11,710, hemoglobin 11.9, hematocrit 35.9. Blood gases on 5 L nasal cannula: pH 7.46, pO2 75, pH 7.46, pCO2 42. Sodium is 145, potassium is 3.6, BUN 43, creatinine is 1.1. DATA: EKG done today shows sinus tachycardia, PACs, left axis, poor R wave progression. IMPRESSION: 1. The patient has developed stress-related cardiomyopathy in the midst of a severe respiratory distress secondary to bronchospasm, aspiration pneumonia and apparently the underlying etiology of this is spasm of the cricopharyngeal sphincter of the esophagus. 2. History of hypertension with abnormal EKG. RECOMMENDATIONS: Since the patient appears to be improving on the present therapy, I would probably suggest to continue Solu-Medrol as you are doing because that seems to be decreasing the inflammation of the airways. I would treat the presumptive systemic infection with vancomycin. Her blood cultures yielded Staphylococcus hominis which basically is a coagulase-negative and has the same sensitivity as MRSA. The patient is really not a candidate for TADEO at this time. We will initiate a low dose of beta jennifer, metoprolol, and see if she can tolerate that. With her blood pressure being as high as it is, we will also consider initiating angiotensin receptor blockers, like losartan, and see if we can keep her blood pressure within a reasonable range. Further advice will be forthcoming. Spironolactone may actually be a good idea since she has a tendency to have low potassium. Thank you for the opportunity to participate in her evaluation. cc: Danny Hernandez MD
--- NOTE | 2016-12-24 12:54 | Diag Imaging Result Document ---
PROCEDURE NAME: CHEST-PORTABLE - 12/24/2016 SINGLE FRONTAL RADIOGRAPH OF THE CHEST: COMPARISON: 12/23/2016. FINDINGS: There is a newly placed left PICC line. The tip projects over the lower SVC just superior to the atriocaval junction in the expected position. There are small bilateral effusions that appear to be increasing. There has been development of bibasilar opacities, worst on the right, probably representing pulmonary edema. Cardiac silhouette is stable. IMPRESSION: 1. Interval placement of left PICC line as described. 2. Interval increase in small bilateral effusions with worsening interstitial edema.
[2016-12-24] MEDS ORDERED: LASIX IV ONE (13:59)
[2016-12-24] MEDS: VANCOMYCIN 1 GM/NS 1 GM/250 ML IVPB IV SCH (14:04)
[2016-12-24] MEDS: LIPOSYN 20% 250 ML IV SCH (14:05)
[2016-12-24] MEDS ORDERED: LASIX IV SCH (14:43)
[2016-12-24] MEDS ORDERED: CLINIMIX E 4.25%-5% SOLUTION 1,000 ML IV SCH (14:44)
[2016-12-24] MEDS: SODIUM CHLORIDE 0.9% INJ SCH (14:56)
--- NOTE | 2016-12-24 15:47 | PROGRESS NOTE ---
DATE: 12/24/2016 SUBJECTIVE: Today Ms. Preciado continues to be the same. Coughing has significantly improved since patient has been NPO. OBJECTIVE: Vital signs: Blood pressure is 119/96, pulse of 105, respirations 20, temperature 97.0 degrees. Patient is saturating 97% on 5 L of oxygen. General: Ms. Preciado is an 81- year-old, female. She is in bed, in mild respiratory distress. HEENT : Mucosa is pink and moist. Anicteric. Acyanotic. Neck: Supple. Chest: Air entry is bilaterally reduced. There is diffuse bilateral posterior crepitations. Cardiovascular: Tachycardic. No murmurs, rubs or gallops. Abdomen: Soft, nontender. No hepatosplenomegaly. Central Nervous System: Patient is awake and alert. Follows commands. There is no focal neurological deficit. LABORATORY DATA: WBC is down to 11.71, hemoglobin is 11.9, platelet count of 160,000. There is only 2% of bands on periphery smear. Sodium is 146, potassium is 3.6, chloride is 107, bicarbonate is 28, BUN is 43, creatinine is 1.1. Troponin was a little elevated yesterday. ASSESSMENT: 1. Chronic cough due to chronic aspirations. 2. 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 3. Staphylococcal hominis bacteremia. So far subsequent blood cultures have been negative. Patient now has a PICC line and will continue. 4. Nutritional needs. At this point the patient is having IV Clinimix with a lipid infusion. I spoke extensively with the daughter and I think they are considering not doing anymore of the Botox therapy. I understand that patient had previous abdominal hernia surgery which was huge and there is a huge mesh right in the abdominal wall. We will, therefore, consult Dr. Magaña to evaluate the patient for possible PEG/J-tube for enteral feedings. 5. Respiratory distress secondary to pulmonary edema. I think this is a combination of possible overall hydration as well as stress related cardiomyopathy. The patient's troponin was slightly elevated yesterday. She has been evaluated by Cardiology and now they have her on a low-dose beta jennifer. In general, Ms. Preciado is an extremely weak, elderly, female with multiple comorbidities. I think the family, with daughter as Power of Refurbish Technician, has decided against going for the Botox therapy with Dr. Morales. We will therefore consult Dr. Magaña who did the abdominal surgery for the hernia a couple of years ago to evaluate the patient for possibility of PEG/J-tube placement. We will also continue with the current antibiotic therapy. Patient is being evaluated seen by ID, Pulmonary Medicine and Cardiology. cc: Chandrakant Salcedo MD MTDD
[2016-12-24] MEDS ORDERED: DIPRIVAN 1% ONE (16:37)
--- NOTE | 2016-12-24 16:43 | OPERATIVE NOTE ---
PROCEDURE DATE: 12/24/2016 PREOPERATIVE DIAGNOSES: 1. Achalasia. 2. Chronic obstructive pulmonary disease. 3. Weight loss. PROCEDURE: EGD with PEG. The patient has brought to the GI lab. After satisfactory IV sedation with propofol and anesthesia standby flexible gastroscope was introduced transorally without difficulty. Esophagus reveals significant patulous Nanette dilation, a widely patent and patulous GE junction. The stomach revealed only mild gastritis. The stomach was insufflated with air. Anterior ballottement revealed good indentation at the distal antrum. The abdominal wall was prepped and draped, infiltrated with a good area of ballottement and with Xylocaine with epinephrine. A stab wound was made. A 14-gauge Angiocath was introduced into the stomach. The Prolene guide was placed. It was grasped with a polyp snare, brought back out through the mouth. The system was hooked up, brought back down through the mouth until the bergeron was against the anterior gastric mucosa. The scope was reintroduced revealing good position of the bergeron. The scope was removed. The system was set up and anchored. She was allowed to return to recovery and then back to ICU shortly. ESTIMATED BLOOD LOSS: Less than 5 mL. cc: Deyvi Magaña MD
[2016-12-24] MEDS ORDERED: ANESTHESIA PB SET 88 IN 5742 ONE (16:51)
[2016-12-24] MEDS ORDERED: LR 1,000 ML ONE (16:51)
--- NOTE | 2016-12-24 17:19 | PROGRESS NOTE ---
DATE: 12/24/2016 PRESENT ILLNESS: The patient has a Staph bacteremia, the exact origin of which is uncertain to me. At this time, both Dr. Hernandez and I feel the patient does not have endocarditis. MEDICATIONS: Patient is receiving vancomycin as a single agent. PHYSICAL EXAMINATION: Vital signs: Temperature is 98 degrees, pulse 117, respirations 23, blood pressure 159/79. General: This is an ill-appearing, elderly female. She just came back from getting a PEG placed by Dr. Magaña today. Lungs: Clear to auscultation. Cardiovascular: Heart rate is regular. Abdomen: Soft. PEG is in place. LABORATORY AND X-RAY: CBC showed a white count today of 11,710, hemoglobin 11.9, platelet count 160,000. Blood gases show a pH of 7.46, a PO2 of 75, a pCO2 of 42. Creatinine is 1.1. GFR is 48. ASSESSMENT AND PLAN: 1. The patient has bacteremia. I plan to continue vancomycin for 14 days. 2. Comorbidities: The patient is elderly. She has cervical dystonia. cc: Dhiraj Mcgowan MD
[2016-12-24] MEDS: DULCOLAX PR SCH (21:03)
[2016-12-25] MEDS: DILAUDID IV PRN ×6 (02:34→22:18)
[2016-12-25] MEDS: SODIUM CHLORIDE 0.9% INJ SCH ×2 (03:33→16:27)
[2016-12-25] MEDS: LOPRESSOR IV SCH ×6 (03:33→23:29)
[2016-12-25] MEDS: PROTONIX IV SCH ×2 (03:33→16:27)
[2016-12-25] MEDS: DUONEB (A & A) INH SCH ×6 (03:53→23:08)
[2016-12-25 04:38] LABS: ALLEN TEST YES; BE 2.7 mmoll (-3.0-3.0); BLOOD TYPE ARTERIAL; DRAW SITE R RADIAL; METHB 1.1 % (0.0-1.5); MODALITY NRB; O2(CT) 17.2 mL/dL (15.0-23.0); PCO2(98.6) 44 mmHg (35-45); PO2(98.6) 67 mmHg (60-100); SAMPLE BLOOD; SAO2 96.3 % (95.0-100.0); THB 13.1 g/dL (11.5-17.4); pH(98.6) 7.41 (7.35-7.45)
[2016-12-25 05:04] LABS: BASO% 0.1 % (0.0-0.8); HEMATOCRIT 40.2 % (37.0-47.0); HEMOGLOBIN 13.4 g/dL (12.0-16.0); IMM GRAN# 0.21 X1000 (0.0-0.04); IMM GRAN% 1.2 % (0.0-0.5); LYMPH# 0.96 X1000 (1.2-3.4); LYMPH% 5.7 % (20.5-51.1); MANUAL DIFF NEEDED? YES; MCH 32.2 PG (27-31); MCHC 33.3 g/dL (33-37); MCV 96.6 FL (81-99); MONO# 1.25 X1000 (0.11-0.59); MONO% 7.4 % (1.7-9.3); MPV 11.4 FL (7.4-10.4); NEUT% 85.6 % (42.2-75.2); PLT 216 X1000 (130-400); RBC 4.16 XMIL (4.2-5.4)
[2016-12-25 05:27] LABS: CALCIUM 9.8 mg/dL (8.8-10.2)
[2016-12-25] MEDS: ATIVAN IV PRN ×3 (05:30→21:00)
[2016-12-25] MEDS: SODIUM CHLORIDE 0.9% INJ PRN (06:10)
[2016-12-25] MEDS: SYNTHROID IV SCH (06:10)
[2016-12-25 06:11] LABS: BANDS 6 % (0-1); LYMPHS 6 % (21-51); MONO 4 % (1-9)
[2016-12-25 06:12] LABS: POLYCHROM 1+
[2016-12-25] MEDS: ADVAIR 250/50 DISKUS INH SCH ×2 (08:08→19:15)
[2016-12-25] MEDS: SOLU-MEDROL IV SCH ×2 (08:28→20:21)
[2016-12-25] MEDS: MIRALAX PO SCH (08:29)
[2016-12-25] MEDS: ALDACTONE PO SCH (08:29)
--- NOTE | 2016-12-25 10:02 | Diag Imaging Result Document ---
PROCEDURE NAME: CHEST-PORTABLE - 12/25/2016 PORTABLE CHEST: COMPARISON: 12/24/2016. FINDINGS: There are bilateral infiltrates. These are slightly more prominent in the midleft lung than on prior study. The heart is mildly prominent. I believe there are small effusions. IMPRESSION: No interval improvement.
[2016-12-25] MEDS ORDERED: LASIX IV ONE (10:51)
[2016-12-25] MEDS: NITROGLYCERIN TOP SCH ×3 (11:01→22:18)
--- NOTE | 2016-12-25 15:34 | PROGRESS NOTE ---
DATE: 12/25/2016 SUBJECTIVE: Today Ms. Preciado continues to be relatively stable. My understanding is that early on today the tube feedings had to be stopped because she was very congested and rattly on the chest. There is the assumption that she might have aspirated from the NG tube feedings. OBJECTIVE: Vital signs: Blood pressure is 146/105, pulse of 115, respiration is 19, temperature is 97.6 degrees. General: Ms. Preciado an 81-year-old female. She is in bed, does not seem to be in any remarkable distress. HEENT: Mucosa is pink and moist. Anicteric. Acyanotic. Neck: Supple. Chest: Air entry is bilaterally reduced. There is diffuse bilateral crackling and rhonchi. Cardiovascular: Regular rate and rhythm. There are no murmurs, no rubs. No gallops. Abdomen: Soft, distended but nontender. There is a binder over the abdominal wall. PEG tube is in place. TIRE CORD WEAVER: Patient is awake and alert. LABORATORY DATA: WBC 16.83, hemoglobin is 13.4, platelet count 216,000. There is 6% of bands on the peripheral smear. Chemistry is reviewed. Creatinine is 1.4. The rest is unremarkable. IMAGING: A chest x-ray done today shows bilateral infiltrates slightly more prominent on the middle of the left lung than the prior study. ASSESSMENT/PLAN: 1. Respiratory distress secondary to: 1- pulmonary edema (possible acute diastolic heart failure). Cardiology is on board. Patient will continue on the diuretic therapy. 1- There is also the assumption that the patient might have reaspirated with even the PEG tube. 2. PEG tube feedings. The patient got at a PEG tube placed yesterday by Dr. Magaña. Tube feeding was started, however, this had to be stopped because of the suspicion of aspiration with the PEG tube. We will notify the surgeon to see if he would want to go advance the tube into the jejunum to reduce the aspiration risk. 3. Staphylococcal hominis bacteremia. We think this is from the upper airway from the coughing. Subsequent blood cultures have been negative. Patient is being seen by Infectious Disease. 4. Chronic cough due to chronic aspiration. This has improved since patient has been kept n.p.o. 5. Worsening leukocytosis. We think this is likely due to the underlying aspiration pneumonia. The patient is on antibiotics. We will continue with the same. So in general I think Ms. Preciado is relatively stable but critical. She seems to be having issues with her PEG tube as well, giving her some aspiration. This is off. We will notify the surgeon to see if we can get the tube down to the jejunum. If that is not possible we will actually be very limited in the way we are going to be able to feed her. For now, I discussed the issue off resuscitation with the daughter who seems to have the power of consumer attorney. According to her, she also discussed it with the other siblings and at this point, they want to make Ms. Preciado DNR, DNI. I did also mention that he if Surgery is unable to advance the tube down to the jejunum then we are going to be extremely limited on how we are going to be feeding her and somewhere down the line we might have to be looking at options of hospice. cc: Chandrakant Salcedo MD MTDD
[2016-12-25] MEDS: DULCOLAX PR SCH (20:21)
--- NOTE | 2016-12-25 20:27 | PROGRESS NOTE ---
DATE: 12/25/2016 PRESENT ILLNESS: The patient has Staph hominis bacteremia the origin of which is uncertain to me. The patient also has bilateral pulmonary infiltrates. This could be due to pneumonia but it is noted that the patient's proBNP is greater than 35,000 and I certainly think there is an element of pulmonary venous congestion as well. MEDICATIONS: The patient is receiving vancomycin as a single agent. PHYSICAL EXAMINATION: Vital Signs: Temperature is 97 degrees, pulse 130, respirations 27, blood pressure 148/110. General: This is an ill-appearing elderly female. She is delirious. She talks but I cannot understand what she is saying and she did not follow request to move her extremities. Cardiovascular: Heart rate is rapid and at times regular and other times it sounds irregular. Vital signs: Respirations 27, blood pressure 148/110. Lungs: Clear. Abdomen: Soft and nontender. A PEG is in place. LABORATORY AND X-RAY: Chest x-ray shows bilateral infiltrates and effusions. Repeat blood cultures are sterile. Creatinine is 1.4. GFR is 36. The proBNP is greater than 35,000. Blood gases show a pH of 7.41, a pO2 of 67 and a pCO2 of 44. Patient's CBC shows a white count of 16,830, hemoglobin is 13.4 and platelet count 216,000. ASSESSMENT AND PLAN: Patient has bacteremia and possible pneumonia. I plan to continue with vancomycin. This is day 6 of treatment with vancomycin. COMORBIDITIES: Include she is elderly and she has achalasia of the esophagus. cc: Dhiraj Mcgowan MD
[2016-12-26] MEDS: DILAUDID IV PRN ×6 (01:11→20:00)
[2016-12-26] MEDS: ATIVAN IV PRN ×3 (02:21→15:16)
[2016-12-26] MEDS: PROTONIX IV SCH ×2 (03:34→16:10)
[2016-12-26] MEDS: SODIUM CHLORIDE 0.9% INJ SCH ×2 (03:34→06:08)
[2016-12-26] MEDS: LOPRESSOR IV SCH ×5 (03:34→20:00)
[2016-12-26] MEDS: DUONEB (A & A) INH SCH ×6 (03:43→23:20)
[2016-12-26 04:22] LABS: ALLEN TEST YES; BLOOD TYPE ARTERIAL; DRAW SITE R RADIAL; METHB 1.5 % (0.0-1.5); O2(CT) 15.9 mL/dL (15.0-23.0); PCO2(98.6) 40 mmHg (35-45); PO2(98.6) 63 mmHg (60-100); SAMPLE BLOOD; SAO2 96.3 % (95.0-100.0); THB 12.2 g/dL (11.5-17.4); pH(98.6) 7.47 (7.35-7.45)
[2016-12-26 04:24] LABS: MODALITY COOL AEROSOL
[2016-12-26 04:49] LABS: BASO% 0.1 % (0.0-0.8); EOS# 0.01 X1000 (0.0-0.7); EOS% 0.1 % (0.0-10.0); HEMATOCRIT 38.7 % (37.0-47.0); HEMOGLOBIN 12.9 g/dL (12.0-16.0); IMM GRAN# 0.17 X1000 (0.0-0.04); IMM GRAN% 1.1 % (0.0-0.5); LYMPH# 1.01 X1000 (1.2-3.4); LYMPH% 6.3 % (20.5-51.1); MANUAL DIFF NEEDED? YES; MCH 32.5 PG (27-31); MCHC 33.3 g/dL (33-37); MCV 97.5 FL (81-99); MONO# 0.85 X1000 (0.11-0.59); MONO% 5.3 % (1.7-9.3); MPV 11.8 FL (7.4-10.4); NEUT% 87.1 % (42.2-75.2); PLT 169 X1000 (130-400); RBC 3.97 XMIL (4.2-5.4)
[2016-12-26 05:04] LABS: CALCIUM 9.7 mg/dL (8.8-10.2); POTASSIUM 3.7 mmol/L (3.5-5.1)
[2016-12-26] MEDS: NITROGLYCERIN TOP SCH ×4 (05:06→23:03)
[2016-12-26 05:26] LABS: LYMPHS 4 % (21-51); MONO 8 % (1-9)
[2016-12-26] MEDS: SYNTHROID IV SCH (06:08)
[2016-12-26] MEDS: ADVAIR 250/50 DISKUS INH SCH ×2 (07:53→19:31)
--- NOTE | 2016-12-26 08:46 | Diag Imaging Result Document ---
PROCEDURE NAME: CHEST-PORTABLE - 12/26/2016 SINGLE FRONTAL RADIOGRAPH OF THE CHEST: COMPARISON: 12/25/2016. FINDINGS: The tip of the PICC line is now directed slightly upward but still projects over the region of the SVC. Bilateral infiltrates are essentially stable given differences in exposure. There are no new consolidations. Cardiac silhouette is stable. IMPRESSION: Slight change in positioning of the tip of the PICC line. Essentially stable chest, otherwise.
[2016-12-26] MEDS ORDERED: VANCOMYCIN 1 GM/NS 1 GM/250 ML IVPB IV SCH (09:00)
[2016-12-26] MEDS: MIRALAX PO SCH (10:11)
[2016-12-26] MEDS: ALDACTONE PO SCH (10:11)
[2016-12-26] MEDS: D5W 1,000 ML IV SCH (10:14)
[2016-12-26] MEDS: SOLU-MEDROL IV SCH ×2 (10:14→20:34)
[2016-12-26] MEDS: ZOFRAN IV PRN ×2 (10:55→15:16)
--- NOTE | 2016-12-26 11:01 | PROGRESS NOTE ---
DATE: 12/26/2016 SUBJECTIVE: Today Ms. Preciado seems to be extremely confused and delirious. Per the nursing staff she has just been like that since last night. Patient is now needing face max for adequate oxygenation. OBJECTIVE: Vital signs: Blood pressure is 143/95, pulse of 115, respirations 23, temperature 97.9 degrees. General: Ms. Preciado is an 82-year-old female. She is in bed, seems to be in mild respiratory distress. HEENT: Mucosa is pink and moist. Anicteric. Acyanotic. Neck: Supple. Chest: Air entry is bilaterally reduced. There are diffuse bilateral crackles in the posterior lung and there is some expiratory rhonchi as well. Cardiovascular: Tachycardic. Regular rate. No murmurs. No rubs. No gallops. Abdomen: Soft, distended. No hepatosplenomegaly. There is a binder on the abdominal wall. Her PEG tube is still in place. 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 Is not focalizing. She seems extremely confused. Does not respond appropriately to questions. She continues to repeat are you okay, are you okay to the [id number]. LABORATORY DATA: WBC is 15.92, hemoglobin is 12.9, platelet count of 169,000. There are no bands on the peripheral smear. Chemistry: Sodium is 152, potassium is 3.7, chloride is 108, bicarb is 30, creatinine is 1.6. A chest x-ray done this morning shows a slight change in position of the tip of the PICC line, essentially stable. There are still bilateral infiltrates. No new consolidation. ASSESSMENT: 1. Altered mental status (delirium). We will try and correct the electrolyte abnormalities to see if this is contributing. However, I think this could be just a poor prognosis from her critical illness. 2. Staphylococcus hominis bacteremia. Patient is on vancomycin. Creatinine continues to show some worsening. Serum vanc levels are okay. I will go ahead and discontinue this and put her on daptomycin. 3. Chronic cough due to chronic aspirations noted. 4. Presbyesophagus with achalasia and diffuse spasms. Patient has been given a PEG tube. However, she continues to have issues with aspiration. 5. Acute hypoxemic respiratory distress. Patient is now needing a face max with 10 L of 80% oxygen to maintain saturation in the low 90s. I think this is all part of aspirations with fluid. We will continue to withhold the tube feedings. 6. Hypernatremia. This could be due to the diuretic use. We have withheld the diuretics. 7. Worsening renal functions with pattern suggestive of contraction alkalosis. We will start the patient on 50 mL of D5 to correct the hypernatremia and also try and see if we can perfuse the kidney a little bit. 8. Elevated troponin, likely secondary to stress related cardiomyopathy. Noted. PLAN: In general Ms. Preciado's condition continues to gradually deteriorate. This morning she looks more confused and more delirious. We will try and correct the hypernatremia and the alkalosis and see if it will improve. I think she is declining daily. I discuss it with the daughter and the son-in-law who were in the room. However, we pending the daughter and the sons to come and make a final decision on how they want care to proceed. Until we have a final conversation with them, I will continue with the current plan of hydration. I will also continue with the current plan of daptomycin. My intention is to discuss hospice with the family. I have already discussed the case with the surgeon on board, Dr. Magaña, who thinks it would not be feasible to advanced the tube into the jejunum because of her critical condition. If that cannot be done then I am afraid we will not be able to feed Ms. Preciado in any meaningful way since any little fluid containing nutrition through the lines most of it goes into the lungs from over hydration. I will therefore be pending the children to come and will discuss the issue of hospice. cc: Chandrakant Salcedo MD [facility]
[2016-12-26] MEDS: CUBICIN (FOR INPATIENT USE) 500 MG in NS 100 ML IV SCH (11:04)
[2016-12-26] MEDS: DULCOLAX PR SCH (20:34)
[2016-12-27] MEDS: LOPRESSOR IV SCH ×6 (00:32→19:40)
[2016-12-27] MEDS: ATIVAN IV PRN ×5 (00:35→21:55)
[2016-12-27] MEDS: DILAUDID IV PRN ×5 (01:33→19:53)
[2016-12-27] MEDS: LOPRESSOR PO SCH ×4 (01:35→19:41)
[2016-12-27] MEDS: DUONEB (A & A) INH SCH ×6 (03:20→23:37)
[2016-12-27] MEDS: SODIUM CHLORIDE 0.9% INJ SCH (04:11)
[2016-12-27] MEDS: PROTONIX IV SCH ×2 (04:11→15:57)
[2016-12-27] MEDS: NITROGLYCERIN TOP SCH ×4 (05:11→23:06)
[2016-12-27] MEDS: D5W 1,000 ML IV SCH ×4 (05:39→22:54)
[2016-12-27 05:50] LABS: CALCIUM 9.7 mg/dL (8.8-10.2); POTASSIUM 3.6 mmol/L (3.5-5.1)
[2016-12-27 06:03] LABS: BASO% 0.2 % (0.0-0.8); EOS# 0.02 X1000 (0.0-0.7); EOS% 0.1 % (0.0-10.0); HEMATOCRIT 40.1 % (37.0-47.0); HEMOGLOBIN 12.8 g/dL (12.0-16.0); IMM GRAN# 0.23 X1000 (0.0-0.04); IMM GRAN% 1.2 % (0.0-0.5); LYMPH# 1.09 X1000 (1.2-3.4); LYMPH% 5.7 % (20.5-51.1); MANUAL DIFF NEEDED? YES; MCH 31.8 PG (27-31); MCHC 31.9 g/dL (33-37); MCV 99.5 FL (81-99); MONO% 7.9 % (1.7-9.3); MPV 12.5 FL (7.4-10.4); NEUT% 84.9 % (42.2-75.2); PLT 147 X1000 (130-400); RBC 4.03 XMIL (4.2-5.4)
[2016-12-27] MEDS: SYNTHROID IV SCH (06:13)
[2016-12-27] MEDS: ADVAIR 250/50 DISKUS INH SCH ×2 (07:39→19:39)
[2016-12-27 07:58] LABS: LYMPHS 4 % (21-51); MONO 3 % (1-9)
[2016-12-27] MEDS ORDERED: VASELINE TOP PRN (08:45)
[2016-12-27] MEDS: ALDACTONE PO SCH (08:52)
[2016-12-27] MEDS: SOLU-MEDROL IV SCH ×2 (08:52→20:46)
[2016-12-27] MEDS: MIRALAX PO SCH (08:52)
--- NOTE | 2016-12-27 08:58 | Diag Imaging Result Document ---
PROCEDURE NAME: CHEST-PORTABLE - 12/27/2016 SINGLE FRONTAL RADIOGRAPH OF THE CHEST: COMPARISON: 12/26/2016. FINDINGS: The left PICC line is stable with the tip directed superiorly but still projecting over the region of the SVC. Bilateral infiltrates, worst on the right are grossly stable. No new consolidations identified. Cardiac silhouette is stable. IMPRESSION: Stable chest.
[2016-12-27] MEDS: MAXIPIME 1 GM/NS 1 GM/50 ML IVPB IV SCH ×2 (10:50→20:46)
--- NOTE | 2016-12-27 11:10 | PROGRESS NOTE ---
DATE: 12/27/2016 SUBJECTIVE: Today Ms. Preciado continues to be critical. She seems a little bit more alert. OBJECTIVE: Vital signs: Blood pressure is 109/73, pulse 104, respiration is 14 , temperature is 97.0 degrees. General: Ms. Preciado is an 81-year-old female. She is in bed, not seemingly distress. HEENT: Mucosa is slightly dry. Anicteric. Acyanotic. Neck: Supple. Chest: Good air entry bilaterally. Few bibasilar crepitations. Cardiovascular : Regular rate and rhythm. Abdomen: Has a binder. PEG tube is in place. Extremities: No pedal edema. 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 She knows what her name is and where she is. She is slightly forgetful about the date. The grandson was in the room with her. She was able to recognize him. LABORATORY DATA: WBC is 19.01, hemoglobin is 12.8, platelet count 147,000, 93% of bands. Chemistry: Sodium is 153, potassium is 3.6, chloride is 110, bicarb is 31, creatinine is 1.4. ASSESSMENT: 1. Altered mental status. This seems to be slightly improved. 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 I will go up on the D5 and avoid any diuretics for now. 2. Staphylococcus hominis bacteremia. The patient is on daptomycin. 3. Chronic cough due to chronic aspiration. The patient will continue to be NPO. 4. Presbyesophagus with achalasia and diffuse spasms. The patient has a PEG tube now. 5. Acute hypoxemic respiratory distress. Patient was needing about 10 L yesterday. She is down to just nasal cannula. We think this is as a result of acute aspiration with the PEG tube feedings. 6. Contraction alkalosis. As I said, I will go up on the D5 to 75 and pay critical attention to her lungs. 7. Stress-related cardiomyopathy. Cardiology is on board. 8. Consolidation in the right lower lobe. Likely from aspiration pneumonia versus hospital- aspirational pneumonia. The patient's white count is going up even with the daptomycin. I will therefore go ahead and add cefepime to cover hospital-associated bugs. PLAN: So this morning I have not been able to speak with the daughter but according to the attending nurse, hospice came and discussed options with the family members. My understanding is that some of them want everything to be done, at least they want fluids to be going and antibiotics. Will continue the care as it is until any further decision is made. cc: Chandrakant Salcedo MD [facility]
[2016-12-27] MEDS: CUBICIN (FOR INPATIENT USE) 500 MG in NS 100 ML IV SCH (11:37)
[2016-12-27] MEDS: DULCOLAX PR SCH (20:46)
[2016-12-28] MEDS: LOPRESSOR IV SCH ×4 (00:08→11:25)
[2016-12-28] MEDS: DILAUDID IV PRN ×8 (00:13→22:03)
[2016-12-28] MEDS: LOPRESSOR PO SCH ×2 (01:51→08:59)
[2016-12-28] MEDS: ATIVAN IV PRN ×3 (02:08→11:59)
[2016-12-28] MEDS: PROTONIX IV SCH (03:40)
[2016-12-28] MEDS: SODIUM CHLORIDE 0.9% INJ SCH (03:40)
[2016-12-28] MEDS: DUONEB (A & A) INH SCH ×6 (03:43→23:52)
[2016-12-28] MEDS: NITROGLYCERIN TOP SCH ×2 (05:06→11:15)
[2016-12-28] MEDS: SYNTHROID IV SCH (06:20)
[2016-12-28] MEDS: SODIUM CHLORIDE 0.9% INJ PRN (06:21)
[2016-12-28 06:49] LABS: BASO% 0.1 % (0.0-0.8); EOS# 0.01 X1000 (0.0-0.7); EOS% 0.1 % (0.0-10.0); HEMATOCRIT 40.7 % (37.0-47.0); HEMOGLOBIN 12.9 g/dL (12.0-16.0); IMM GRAN# 0.38 X1000 (0.0-0.04); IMM GRAN% 2.2 % (0.0-0.5); LYMPH# 1.01 X1000 (1.2-3.4); LYMPH% 5.8 % (20.5-51.1); MANUAL DIFF NEEDED? YES; MCH 31.5 PG (27-31); MCHC 31.7 g/dL (33-37); MCV 99.3 FL (81-99); MONO# 1.62 X1000 (0.11-0.59); MONO% 9.3 % (1.7-9.3); NEUT% 82.5 % (42.2-75.2); PLT 125 X1000 (130-400)
[2016-12-28 06:55] LABS: CALCIUM 9.5 mg/dL (8.8-10.2); POTASSIUM 3.6 mmol/L (3.5-5.1)
[2016-12-28] MEDS: ADVAIR 250/50 DISKUS INH SCH (07:25)
[2016-12-28 07:54] LABS: LYMPHS 6 % (21-51); MONO 6 % (1-9)
[2016-12-28] MEDS: MAXIPIME 1 GM/NS 1 GM/50 ML IVPB IV SCH (08:17)
[2016-12-28] MEDS: ALDACTONE PO SCH (08:17)
[2016-12-28] MEDS: SOLU-MEDROL IV SCH (08:17)
[2016-12-28] MEDS: MIRALAX PO SCH (08:18)
--- NOTE | 2016-12-28 09:52 | Diag Imaging Result Document ---
PROCEDURE NAME: CHEST-PORTABLE - 12/28/2016 PORTABLE CHEST X-RAY, 12/28/2016: COMPARISON: 12/27/2016. FINDINGS: Stable left PICC line. There is perhaps slight worsening in the ill-defined infiltrates bilaterally, right greater than left. There are small pleural effusions which have worsened since prior. There is significant cardiomegaly. IMPRESSION: Slight worsening bilateral infiltrates and pleural effusions. Pulmonary edema is suggested.
[2016-12-28] MEDS: D5W 1,000 ML IV SCH (11:15)
[2016-12-28] MEDS: CUBICIN (FOR INPATIENT USE) 500 MG in NS 100 ML IV SCH (11:15)
--- NOTE | 2016-12-28 16:19 | PROGRESS NOTE ---
DATE: 12/28/2016 SUBJECTIVE: Today Ms. Preciado continues to be pretty much the same. She was given some medications so she was resting. I was able to have a conversation of about an hour with the 2 sons, 1 daughter and the daughter-in- law in the room regarding Ms. Preciado's status. At the end of the conversation, they all were in agreement to make her to transition her to only comfort care measures and put her on hospice. OBJECTIVE: Vital signs: Blood pressure is 145/118, pulse of 105, respirations 13, temperature 96.8 degrees. General: Ms. Preciado is an 81-year-old female. She is in bed, not seemingly distressed. HEENT: Mucosa is pink and moist. Anicteric and acyanotic. Neck: Supple. Chest: Air entry is bilaterally reduced. There are a few bibasilar crepitations. Cardiovascular: Regular rate and rhythm. No murmurs. Abdomen: Soft. There is a binder in place and a PEG tube. Extremities: No pedal edema. 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 LABORATORY DATA: WBC is 17.37, hemoglobin is 12.9, platelet count of 125,000. There are no bands on the peripheral smear. Chemistry: Sodium is 149, potassium is 3.6, chloride is 108, bicarb is 28, creatinine is 1.3. The proBNP is 32,170. ASSESSMENT: 1. Altered mental status (delirium). 2. Staphylococcus hominis bacteremia. 3. Chronic cough due to aspirations. 4. Presbyesophagus with achalasia and diffuse spasms. 5. Acute hypoxemic respiratory distress. 6. Stress-related cardiomyopathy. 7. Right lower lobe pneumonia. 8. Poor prognosis. PLAN: Today as a said, I spoke extensively with the family members of Ms. Preciado. She is going to be transferred from the ICU to the regular floor with comfort care measures. The family at this point do not want any invasive procedures to be done. They do not want any daily labs or x-rays. They also do not want any antibiotics or any IV fluids or nutrition. We are going to put her now under comfort care measures. If she continues to be hurting, we will reconsult hospice for inpatient hospice. cc: Chandrakant Salcedo MD
[2016-12-28] MEDS: DULCOLAX PR SCH (21:10)
[2016-12-29] MEDS: ATIVAN IV PRN ×3 (01:03→12:19)
[2016-12-29] MEDS: DILAUDID IV PRN ×3 (02:56→09:39)
[2016-12-29] MEDS: DUONEB (A & A) INH SCH ×3 (03:47→12:12)
[2016-12-29 08:26] VITALS: BP 143/109
[2016-12-29] MEDS ORDERED: DILAUDID IV PRN (10:09)
--- NOTE | 2016-12-29 10:44 | PROGRESS NOTE ---
DATE: 12/29/2016 SUBJECTIVE: The patient is lying in bed, moaning, restless, grimacing. OBJECTIVE: Vital Signs: Temperature is 97.6 degrees, heart rate 140, respirations 18, blood pressure 143/109, O2 is 94% on 5 L nasal cannula. General: Ms. Preciado is an 81-year-old female. She is in the bed, restless, grimacing and moaning. HEENT: Atraumatic, normocephalic. Mucosa is slightly dry. Neck: Supple. CV: Tachycardic. S1-S2 appreciated. Pulmonary: Bilateral breath sounds with few bibasilar crepitations. Abdomen: Appears soft, nontender. Positive bowel sounds. Extremities: No pedal edema. Neurologic: The patient is lying in bed restless, moaning, grimacing. She does have I believe a daughter and another gentleman at the bedside. LABORATORY DATA AND DIAGNOSTICS: None. ASSESSMENT AND PLAN: 1. Altered mental status, delirium. The patient has been moved to the floor. Hospice was consulted. She was placed on comfort measures. However, the patient is restless, grimacing and moaning in bed. We will reconsult for inpatient hospice. 2. Staphylococcus hominis bacteremia. Again patient is a [id number] on comfort measures. 3. Chronic cough secondary to chronic aspirations noted. 4. Presbyesophagus with achalasia and diffuse spasms. The patient did not tolerate tube feedings. She continued having issues with aspiration. Those have been stopped. 5. Acute hypoxemic respiratory distress. The patient is now on nasal cannula. 6. Hypernatremia secondary to diuretic use. Diuretics have been held. 7. Worsening renal function. Aware. 8. Elevated troponin secondary to stress-related cardiomyopathy noted. DISPOSITION: The patient was moved out of the ICU yesterday. She was made a DNR level 1 and placed on comfort measures. However, this a.m. the patient is in bed. She does have a daughter and another gentleman at the bedside. She is restless, moaning and grimacing. She had already had her pain medication. Her dosages in her pain medication have been increased to q. 1 hour with re-consult for hospice to evaluate for inpatient hospice. Further recommendation to follow physician evaluation. Dictated by DAWOOD Espinal for Odin Arambula MD cc: Odin Arambula MD
--- NOTE | 2016-12-29 18:46 | DISCHARGE SUMMARY ---
ADMISSION DATE: 12/19/2016 DISCHARGE DATE: 12/29/2016 CONSULTATIONS: 1. Dr. Mora with Pulmonology. 2. Dr. Dhiraj Mcgowan with Infectious Disease. 3. Dr. Hernandez with Cardiology. PERTINENT PROCEDURES: 1. EGD with PEG tube placement performed by Dr. Magaña. 2. CT of the chest showed no pneumonia but scattered granuloma, mildly prominent heart. 3. Echocardiogram showed an EF of 50%, anteroseptal hypokinesis. DISCHARGE DIAGNOSES: 1. Altered mental status. Delirium. 2. Staphylococcus hominis bacteremia. 3. Chronic cough secondary to aspirations. 4. Presbyesophagus with achalasia and diffuse spasms. 5. Acute hypoxemic respiratory distress. 6. Stress related cardiomyopathy. 7. Right lower lobe pneumonia. 8. Poor prognosis: DNR level 1. Transition to comfort care then to inpatient hospice secondary to unable to control patient's symptoms. HOSPITAL COURSE: Ms. Preciado is an 81-year-old, female, with history of COPD, CHF, hypertension, hypothyroidism, presented to the ED with several weeks history of progressive worsening shortness of breath as well as coughing spells that seemed to worsen over the past several days prior to her admission. She was evaluated in the ED. She was found to be in respiratory distress. She was placed on BiPAP where she had minimal improvement. She was moved to the ICU for acute respiratory failure, COPD exacerbation and started on IV steroids as well as IV antibiotics with pulmonology, cardiology, and infectious disease consult. The patient was found to have severe presbyesophagus with diffuse esophageal spasm leading to chronic aspirations. Ms. Preciado was extremely weak. The family decided against going for another Botox therapy with Dr. Carvalho in [place]. Dr. Magaña was consulted for the placement of a PEG tube to initiate tube feedings. However the patient continued to aspirate. Her PEG tube feedings were stopped. The patient did develop pneumonia. She was continued on antibiotics. After Dr. Salcedo spoke with the family at length they did make her a DNR. On 12/28/2016 with the patient's continue mental status the patient was transferred out of the ICU to regular floor with comfort measures. However today upon evaluation with Dr. Arambula the patient had received pain medications. She was still restless in bed, grimacing and moaning. DISPOSITION: We had the patient re-evaluated for inpatient hospice. She is now appropriate and will be transitioned to inpatient hospice. Dictated by DAWOOD Espinal for Odin Arambula MD cc: Odin Arambula MD
--- NOTE | 2016-12-30 04:25 | DISCHARGE SUMMARY ---
ADMISSION DATE: 12/19/2016 DISCHARGE DATE: 12/29/2016 HISTORY/HOSPITAL COURSE: The patient admitted on 12/19/2016, put on inpatient hospice on 12/29/2016. This is an 81-year-old, with history of COPD, congestive heart failure, hypertension, hypothyroidism, presented to the emergency department with a several week history of having progressive worsening shortness of breath. The patient states she was having difficulty breathing. She also had coughing spells which would not stop and seemed to be worsening over the next several days. States that symptoms worsened and she could not tolerate it, and they came to the emergency department. She was put on BiPAP and did have some improvement. Past medical history includes COPD, hypertension, congestive heart failure, hyperlipidemia, esophageal spasm and stricture, cervical dystonia, chronic kidney disease, anemia and hypothyroidism. So, was admitted with acute respiratory failure, COPD, congestive heart failure, hypertension and hyperlipidemia. Patient is cared for by her daughter. She had altered mental status with delirium and she had a history of Staphylococcus hominis bacteremia. She had a do not resuscitate order, chronic cough secondary to chronic aspirations and presbyesophagus and achalasia, diffuse spasms. Did not tolerate feedings. Did not tolerate attempts for tube feeding. Acute hypoxemia and respiratory distress. Hypernatremic secondary to diuretic use. Worsening renal failure. Daughter decided to make her inpatient hospice and she was put on inpatient hospice on 12/29/2016. cc: Odin Arambula MD
== END 2016-12-29 13:58 | disposition hospice, inpatient (51) ==
LOC: ED 18:27 → SUATTDRO 20:50 → 3N 20:50 → EDIPHOLD 21:23 → ICU 12-20 00:20 → 4N 12-28 22:12
PROVIDERS: ATTEND Emergency Medicine

== ENCOUNTER 2016-12-29 13:59 | Inpatient (IN) ==
[2016-12-29] MEDS ORDERED: ATROPINE 1% OPHTH SOLN SL PRN (15:08)
[2016-12-29] MEDS ORDERED: ZOFRAN IV PRN (15:22)
[2016-12-29] MEDS ORDERED: HALDOL PO PRN (15:24)
[2016-12-29] MEDS: DILAUDID IV PRN ×3 (15:25→23:55)
[2016-12-29] MEDS ORDERED: TYLENOL PR PRN (15:27)
[2016-12-29] MEDS ORDERED: ATIVAN PO PRN (15:31)
[2016-12-29] MEDS: DUONEB (A & A) INH SCH ×3 (16:12→23:08)
[2016-12-29] MEDS: ATIVAN IV PRN (23:54)
[2016-12-30] MEDS: DILAUDID IV PRN ×13 (03:14→23:06)
[2016-12-30] MEDS: DUONEB (A & A) INH SCH ×6 (03:54→23:35)
[2016-12-30] MEDS: ATIVAN IV PRN ×2 (12:58→16:37)
--- NOTE | 2016-12-30 14:58 | PROGRESS NOTE ---
DATE: 12/30/2016 SUBJECTIVE: Ms. Kimberlee Preciado appears to be much more calm in the bed. Today, patient has been changed to inpatient hospice care. OBJECTIVE: Vital Signs: Temperature 97.6 degrees, heart rate 73, respiratory rate 15, blood pressure 143/109, and O2 saturation 99% on 6L. General: Ms. Kimberlee Preciado is an 81-year-old female. She is in no acute distress and is able to rest much more comfortably today. Cardiovascular: S1 and S2. Tachycardic rate and rhythm. No rubs, gallops, murmurs. Pulmonary: Bilateral breath sounds. Clear, except for bibasilar crepitations. Gastrointestinal: Soft, nontender, nondistended. Positive bowel sounds x4. Extremities: No edema noted. Dorsalis and radial pulses +2. Neurologic: She is lying in bed, much more comfortable. LABORATORY DATA: Actually, no CBC since 12/28/2016 and also no BMP since 12/28/2016. IMAGING: None recent. ASSESSMENT AND PLAN: 1. Altered mental status secondary to acute delirium. She is now with inpatient hospice care on comfort measures. She is much less restless and is more comfortable. 2. Staphylococcus hominis bacteremia, again with DNR and comfort measures. 3. Chronic cough secondary to chronic aspiration. 4. Presbyesophagus with achalasia and diffuse spasms. She did not tolerate tube feeds secondary to continuing having aspiration issues. These have been stopped. 5. Acute hypoxemic respiratory distress. Continue on 6L nasal cannula. 6. Hypernatremia secondary to diuretic use. Diuretics are stopped. 7. Worsening renal function. No new orders. 8. Troponinemia secondary to stress-related cardiomyopathy. 9. Disposition: Inpatient hospice care and comfort measures. Dictated by DAWOOD Mary for Odin Arambula MD cc: DAWOOD Mary MD
[2016-12-31] MEDS: DILAUDID IV PRN ×21 (00:08→23:47)
[2016-12-31] MEDS: ATIVAN IV PRN ×2 (03:57→09:50)
[2016-12-31] MEDS: DUONEB (A & A) INH SCH ×6 (06:38→23:11)
[2016-12-31] MEDS: ATIVAN IV SCH ×6 (12:04→22:39)
--- NOTE | 2016-12-31 12:23 | PROGRESS NOTE ---
DATE: 12/31/2016 SUBJECTIVE: She is still very lethargic. Appears uncomfortable. Family requesting more sedation, so we will go up on the Ativan and Dilaudid. OBJECTIVE: Vital signs: She remains afebrile. Pulse 76, respirations 18, blood pressure 135/77. HEENT: Oral and nasal mucosa dry. Lungs: Clear in all lung singer. Cardiovascular: Regular rhythm and rate without murmur or S3. Abdomen: Soft. Skin: Warm and dry. Good . ASSESSMENT AND PLAN: 1. Altered mental status, acute delirium. Patient in inpatient hospice, comfort measures. We will go up on Dilaudid and Ativan. 2. Staphylococcus hominis bacteremia. The patient is do not resuscitate, comfort measures. 3. Chronic cough secondary to chronic aspiration. 4. Presbyesophagus achalasia, diffuse spasms. Not able to tolerate feeding tube. Not able to get feeding. 5. Hypoxemic respiratory distress. On 6 L nasal cannula. Continue comfort measures. REVIEW OF ORDERS: I do not see any changes. We will go up on the Dilaudid and Ativan. cc: Odin Arambula MD
[2016-12-31] MEDS: ATROPINE 1% OPHTH SOLN SL PRN ×3 (16:57→22:40)
[2017-01-01] MEDS: ATIVAN IV SCH ×12 (00:40→22:40)
[2017-01-01] MEDS: ATROPINE 1% OPHTH SOLN SL PRN ×4 (00:47→21:53)
[2017-01-01] MEDS: DILAUDID IV PRN ×19 (00:48→22:54)
[2017-01-01] MEDS: DUONEB (A & A) INH SCH ×6 (03:56→23:30)
[2017-01-01] MEDS: TRANSDERM-SCOP TD SCH (12:54)
--- NOTE | 2017-01-01 17:37 | PROGRESS NOTE ---
DATE: 01/01/2017 SUBJECTIVE: The patient is currently resting comfortably. Her family is present at the bedside. She does not appear to be in any distress. OBJECTIVE: Vital Signs: Temperature 97.8 degrees, heart rate 111, respirations 14, O2 saturations 91% on 6 L nasal cannula. General: This is a chronically ill-appearing, elderly female, lying in bed, in no acute distress. Head: Normocephalic, atraumatic. Heart: S1, S2, normal, tachycardic. Lungs: Coarse breath sounds with crackles bilaterally. Abdomen: Positive bowel sounds. Soft, nontender, nondistended. Extremities: Trace pedal edema. ASSESSMENT: 1. Acute delirium. 2. Staphylococcus hominis bacteremia. 3. Chronic cough. 4. Achalasia with diffuse spasm. 5. Hypernatremia. PLAN: Continue with all comfort measures. Will add a scopolamine patch. cc: Ary Rojas MD
[2017-01-02] MEDS: ATIVAN IV SCH ×12 (00:45→23:38)
[2017-01-02] MEDS: DILAUDID IV PRN ×18 (00:55→23:48)
[2017-01-02] MEDS: DUONEB (A & A) INH SCH ×5 (08:03→23:18)
--- NOTE | 2017-01-02 14:56 | PROGRESS NOTE ---
DATE: 01/02/2017 SUBJECTIVE: The patient is resting comfortably. No acute events noted overnight. OBJECTIVE: Vital Signs: Heart rate 94, respirations 16, O2 saturations 89% on 6 L nasal cannula. General: This is a chronically ill-appearing elderly female lying in bed in no acute distress. Head: Normocephalic, atraumatic. Heart: S1, S2 normal. Tachycardic. Lungs: Coarse breath sounds with crackles bilaterally. Abdomen: Positive bowel sounds. Soft, nontender, nondistended. Extremities: Trace pedal edema. ASSESSMENT: 1. Acute delirium. 2. Achalasia with diffuse spasm. 3. Acute respiratory failure. 4. Staphylococcus hominis bacteremia. PLAN: Will continue with comfort measures. The patient's family was updated at the bedside. cc: Ary Rojas MD
[2017-01-03] MEDS: DILAUDID IV PRN ×21 (00:47→23:51)
[2017-01-03] MEDS: ATIVAN IV SCH ×12 (01:40→22:29)
[2017-01-03] MEDS: DUONEB (A & A) INH SCH ×6 (03:53→22:40)
--- NOTE | 2017-01-03 17:36 | PROGRESS NOTE ---
DATE: 01/03/2017 SUBJECTIVE: The patient is resting comfortably. She is receiving Dilaudid every hour. She appears to be comfortable. OBJECTIVE: Vital Signs: Heart rate 88, respirations 14, O2 sats 88% on 6 L nasal cannula. General: This is a chronically ill-appearing, elderly female, lying in bed. Psych: In no acute distress. Head: Normocephalic, atraumatic. Heart: S1, S2. Normal. Regular rate and rhythm. Lungs: Coarse breath sounds with crackles bilaterally. Abdomen: Positive bowel sounds. Soft, obese, nontender. Extremities: Trace pedal edema. ASSESSMENT: 1. Acute hypoxemic respiratory failure. 2. Acute delirium. 3. Achalasia with diffuse spasm. 4. Staphylococcus hominis bacteremia. PLAN: 1. We will continue with comfort measures. [facility] is following. cc: Ary Rojas MD [facility]
[2017-01-03] MEDS: ATROPINE 1% OPHTH SOLN SL PRN (23:33)
[2017-01-04] MEDS: DILAUDID IV PRN ×21 (00:23→22:54)
[2017-01-04] MEDS: ATIVAN IV SCH ×12 (00:23→22:54)
[2017-01-04] MEDS: ATROPINE 1% OPHTH SOLN SL PRN ×5 (02:30→21:58)
[2017-01-04] MEDS: DUONEB (A & A) INH SCH ×6 (03:35→23:10)
[2017-01-04] MEDS: TRANSDERM-SCOP TD SCH (13:07)
--- NOTE | 2017-01-04 14:46 | PROGRESS NOTE ---
DATE: 01/04/2017 SUBJECTIVE: The patient is resting comfortably. No acute events noted by the family or the nursing staff. OBJECTIVE: Vital Signs: Heart rate 125, respirations 18, O2 saturations 92% on 5 L nasal cannula. General: This is an elderly female, lying in bed, in no acute distress. Head: Normocephalic, atraumatic. Heart: S1, S2 normal, tachycardic. Lungs: Coarse breath sounds bilaterally. Abdomen: Soft. No bowel sounds heard. Extremities: +1 edema. ASSESSMENT: 1. Acute hypoxemic respiratory failure. 2. Acute delirium. 3. Achalasia with diffuse spasm. 4. Staphylococcus hominis bacteremia. PLAN: We will continue with comfort measures. The patient's family is present at the bedside. cc: Ary Rojas MD
[2017-01-05] MEDS: DILAUDID IV PRN ×25 (00:01→23:56)
[2017-01-05] MEDS: ATIVAN IV SCH ×12 (01:03→22:54)
[2017-01-05] MEDS: DUONEB (A & A) INH SCH ×6 (03:20→23:46)
--- NOTE | 2017-01-05 17:27 | PROGRESS NOTE ---
DATE: 01/05/2017 SUBJECTIVE: The patient is resting comfortably in bed. No acute events noted overnight. OBJECTIVE: Vital Signs: Heart rate 122, respirations 18, O2 saturations 89% on 5 L nasal cannula. General: This is an elderly female, lying in bed, in no acute distress. Head: Normocephalic, atraumatic. Heart: S1, S2. Normal. Tachycardic. Lungs: Coarse breath sounds bilaterally. Abdomen: No bowel sounds. Extremities: +1 edema. ASSESSMENT: 1. Acute hypoxemic respiratory failure. 2. Acute delirium. 3. Achalasia with diffuse spasm. 4. Staphylococcus hominis bacteremia. PLAN: Continue with comfort measures. cc: Ary Rojas MD
[2017-01-05] MEDS: ATROPINE 1% OPHTH SOLN SL PRN (19:13)
[2017-01-06] MEDS: ATIVAN IV SCH ×10 (01:07→19:01)
[2017-01-06] MEDS: DILAUDID IV PRN ×19 (01:08→19:00)
[2017-01-06] MEDS: DUONEB (A & A) INH SCH ×4 (03:59→15:46)
[2017-01-06 07:57] VITALS: BP 86/41
[2017-01-06] MEDS: ATROPINE 1% OPHTH SOLN SL PRN (13:00)
--- NOTE | 2017-01-06 13:03 | PROGRESS NOTE ---
DATE: 01/06/2017 SUBJECTIVE: The patient is resting comfortably in bed. No acute events noted overnight. OBJECTIVE: Vital Signs: Temperature 97 degrees, blood pressure 86/41, heart rate 91, respirations 17, O2 saturations 92% on 5 L nasal cannula. General: This is a chronically ill- appearing, elderly female, lying in bed, in no acute distress. Head: Normocephalic, atraumatic. Heart: S1, S2. Normal. Tachycardic. Lungs: Coarse breath sounds with crackles. Abdomen: No bowel sounds. Soft. Extremities: +1 edema. No cyanosis. No calf tenderness. ASSESSMENT: 1. Acute hypoxemic respiratory failure. 2. Acute delirium. 3. Achalasia with diffuse spasm. 4. Staphylococcus hominis bacteremia. PLAN: Continue with comfort measures. cc: Ary Rojas MD
== END 2017-01-06 19:40 | disposition expired ==
LOC: SUATTDRO 13:59 → 4N 13:59 → 3N 12-30 21:36
PROVIDERS: ATTEND Internal Medicine